=== PATIENT | male | born 1985 | race American Indian/Alaskan Native ===

== ENCOUNTER 2018-04-21 13:49 | Inpatient (IN) | payer OTHER ==
[2018-04-21 15:02] LABS: Hematocrit 33.3 % (35.5-45.6); Hemoglobin 10.2 gm/dl (11.8-15.2); Mean Corpuscular HGB Conc 31 % (32-34); Mean Corpuscular Volume 74 fl (84-94); Platelet Count 162 K/mm3 (140-440); Red Blood Count 4.49 M/mm3 (3.65-5.03)
[2018-04-21 15:16] LABS: Mean Corpuscular Hemoglobin 23 pg (28-32); Red Cell Distribution Width 21.1 % (13.2-15.2)
[2018-04-21 15:22] LABS: Albumin 2.9 g/dL (3.9-5); Calcium 8.9 mg/dL (8.4-10.2)
[2018-04-21] MEDS ORDERED: VANCOMYCIN IV ONE (16:26)
[2018-04-21] MEDS ORDERED: NACL 0.9% 1000 ML IV ONE (16:26)
[2018-04-21] MEDS ORDERED: NACL 0.9% IV ONE (16:26)
--- NOTE | 2018-04-21 16:33 | Emergency Department Report ---
ED Altered Mental Status HPI - General Chief Complaint: Nausea/Vomiting/Diarrhea Stated Complaint: AMS Time Seen by Provider: 04/21/18 16:11 Source: patient, EMS Mode of arrival: Stretcher Limitations: Physical Limitation - History of Present Illness Initial Comments: Mr. Caceres is 33 yo male who presents with altered mental status for the past days. Mother called EMS. He appeared sleepy. recently dc'd from [facility] for hypertensive crisis. Hx of CVA. Patient unable to give hx due to severe illness. I reviewed nursing documentation Our nurse spoke with mother, kept falling today. Has hx of slurred speech due to CVA. Recent evaluation at [facility] for HTN. I was unable to contact mother with number provided. MD Complaint: altered mental status, decreased responsiveness -: Gradual Severity: severe Consistency of Symptoms: getting worse - Related Data Allergies Allergy/AdvReac Type Severity Reaction Status Date / Time No Known Allergies Allergy Unverified 04/21/18 14:14 ED Review of Systems ROS: Stated complaint: AMS Other details as noted in HPI Comment: Unobtainable due to pts medical conditions ED Past Medical Hx - Past Medical History Hx Hypertension: Yes Hx CVA: Yes - Surgical History Additional Surgical History: unable to be obtained - Social History Other Social History: unable to obtain hx ED Physical Exam - General Limitations: Physical Limitation General appearance: lethargic, other (increased work of breathing) - Head Head exam: Present: atraumatic, normocephalic - Eye Eye exam: Present: PERRL - ENT ENT exam: Present: mucous membranes dry - Neck Neck exam: Present: other (neck supple) - Respiratory Respiratory exam: Present: accessory muscle use, decreased breath sounds - Cardiovascular Cardiovascular Exam: Present: regular rate, normal rhythm, normal heart sounds. Absent: systolic murmur, diastolic murmur - GI/Abdominal GI/Abdominal exam: Present: soft. Absent: distended, tenderness, guarding, rebound - Extremities Exam Extremities exam: Present: other (edematous extremities with venous stasis changes) - Neurological Exam Neurological exam: Present: other (lethargic ) - Psychiatric Psychiatric exam: Present: other (lethargic) - Skin Skin exam: Present: other (venous stasis dermatitis) ED Course Vital Signs 04/21/18 04/21/18 04/21/18 15:01 15:02 16:05 Temperature 103.3 F H Pulse Rate 84 84 Respiratory 14 14 15 Rate Blood Pressure 141/89 Blood Pressure 141/89 [Left] O2 Sat by Pulse 96 96 95 Oximetry 04/21/18 04/21/18 04/21/18 17:01 17:22 18:01 Temperature 102.8 F H Pulse Rate 86 88 81 Respiratory 26 H Rate Blood Pressure 155/89 160/81 Blood Pressure 155/89 [Left] O2 Sat by Pulse 98 97 95 Oximetry 04/21/18 04/21/18 04/21/18 19:01 21:19 21:22 Temperature 101.2 F H Pulse Rate 81 78 78 Respiratory 19 19 Rate Blood Pressure 149/77 149/77 Blood Pressure 150/80 [Left] O2 Sat by Pulse 95 97 Oximetry 04/21/18 04/21/18 22:37 23:01 Temperature Pulse Rate 76 Respiratory 21 Rate Blood Pressure 150/80 145/62 Blood Pressure [Left] O2 Sat by Pulse 98 89 Oximetry - Lab Data Result diagrams: 04/21/18 14:50 04/21/18 14:50 Lab Results 04/21/18 04/21/18 04/21/18 Range/Units 14:50 14:50 14:50 WBC 22.3 H (4.5-11.0) K/mm3 RBC 4.49 (3.65-5.03) M/mm3 Hgb 10.2 L (11.8-15.2) gm/dl Hct 33.3 L (35.5-45.6) % MCV 74 L (84-94) fl MCH 23 L (28-32) pg MCHC 31 L (32-34) % RDW 21.1 H (13.2-15.2) % Plt Count 162 (140-440) K/mm3 Add Manual Diff Complete Total Counted 100 Seg Neuts % (Manual) 87.0 H (40.0-70.0) % Band Neutrophils % 0 % Lymphocytes % (Manual) 6.0 L (13.4-35.0) % Reactive Lymphs % (Man) 0 % Monocytes % (Manual) 7.0 (0.0-7.3) % Eosinophils % (Manual) 0 (0.0-4.3) % Basophils % (Manual) 0 (0.0-1.8) % Metamyelocytes % 0 % Myelocytes % 0 % Promyelocytes % 0 % Blast Cells % 0 % Nucleated RBC % Not Reportable Seg Neutrophils # Man 19.4 H (1.8-7.7) K/mm3 Band Neutrophils # 0.0 K/mm3 Lymphocytes # (Manual) 1.3 (1.2-5.4) K/mm3 Abs React Lymphs (Man) 0.0 K/mm3 Monocytes # (Manual) 1.6 H (0.0-0.8) K/mm3 Eosinophils # (Manual) 0.0 (0.0-0.4) K/mm3 Basophils # (Manual) 0.0 (0.0-0.1) K/mm3 Metamyelocytes # 0.0 K/mm3 Myelocytes # 0.0 K/mm3 Promyelocytes # 0.0 K/mm3 Blast Cells # 0.0 K/mm3 WBC Morphology Not Reportable Hypersegmented Neuts Not Reportable Hyposegmented Neuts Not Reportable Hypogranular Neuts Not Reportable Smudge Cells Not Reportable Toxic Granulation Not Reportable Toxic Vacuolation Not Reportable Dohle Bodies Not Reportable Pelger-Huet Anomaly Not Reportable Yoly Rods Not Reportable Platelet Estimate Not Reportable Clumped Platelets Not Reportable Plt Clumps, EDTA Not Reportable Large Platelets Not Reportable Giant Platelets Not Reportable Platelet Satelliting Not Reportable Plt Morphology Comment Not Reportable RBC Morphology Normal Dimorphic RBCs Not Reportable Polychromasia Not Reportable Hypochromasia Not Reportable Poikilocytosis Not Reportable Anisocytosis Not Reportable Microcytosis Not Reportable Macrocytosis Not Reportable Spherocytes Not Reportable Pappenheimer Bodies Not Reportable Sickle Cells Not Reportable Target Cells Not Reportable Tear Drop Cells Not Reportable Ovalocytes Not Reportable Helmet Cells Not Reportable Guevar[place] Bodies Not Reportable [place] Rings Not Reportable [place] Cells Not Reportable Bite Cells Not Reportable Crenated Cell Not Reportable Elliptocytes Not Reportable Acanthocytes (Spur) Not Reportable Rouleaux Not Reportable Hemoglobin C Crystals Not Reportable Schistocytes Not Reportable Malaria parasites Not Reportable José Miguel Bodies Not Reportable Hem Pathologist Commnt No Sodium 136 L (137-145) mmol/L Potassium 3.7 (3.6-5.0) mmol/L Chloride 95.6 L (98-107) mmol/L Carbon Dioxide 26 (22-30) mmol/L Anion Gap 18 mmol/L BUN 49 H (9-20) mg/dL Creatinine 3.8 H (0.8-1.5) mg/dL Estimated GFR 19 ml/min BUN/Creatinine Ratio 13 % Glucose 83 (75-100) mg/dL POC Glucose (70-105) Lactic Acid (0.7-2.0) mmol/L Calcium 8.9 (8.4-10.2) mg/dL Total Bilirubin 1.10 (0.1-1.2) mg/dL AST 50 H (5-40) units/L ALT 12 (7-56) units/L Alkaline Phosphatase 89 (35-129) units/L Ammonia (25-60) umol/L Total Protein 7.6 (6.3-8.2) g/dL Albumin 2.9 L (3.9-5) g/dL Albumin/Globulin Ratio 0.6 % TSH 2.650 (0.270-4.200) mlU/mL Urine Color (Yellow) Urine Turbidity (Clear) Urine pH (5.0-7.0) Ur Specific [place] (1.003-1.030) Urine Protein (Negative) mg/dL Urine Glucose (UA) (Negative) mg/dL Urine Ketones (Negative) mg/dL Urine Blood (Negative) Urine Nitrite (Negative) Urine Bilirubin (Negative) Urine Urobilinogen (<2.0) mg/dL Ur Leukocyte Esterase (Negative) Urine WBC (Auto) (0.0-6.0) /HPF Urine RBC (Auto) (0.0-6.0) /HPF U Epithel Cells (Auto) (0-13.0) /HPF Urine Bacteria (Auto) (Negative) /HPF Urine Yeast (Budding) /HPF Urine Opiates Screen Urine Methadone Screen Ur Barbiturates Screen Ur Phencyclidine Scrn Ur Amphetamines Screen U Benzodiazepines Scrn Urine Cocaine Screen U Marijuana (THC) Screen Drugs of Abuse Note Plasma/Serum Alcohol (0-0.07) % 04/21/18 04/21/18 04/21/18 Range/Units 14:50 16:16 19:01 WBC (4.5-11.0) K/mm3 RBC (3.65-5.03) M/mm3 Hgb (11.8-15.2) gm/dl Hct (35.5-45.6) % MCV (84-94) fl MCH (28-32) pg MCHC (32-34) % RDW (13.2-15.2) % Plt Count (140-440) K/mm3 Add Manual Diff Total Counted Seg Neuts % (Manual) (40.0-70.0) % Band Neutrophils % % Lymphocytes % (Manual) (13.4-35.0) % Reactive Lymphs % (Man) % Monocytes % (Manual) (0.0-7.3) % Eosinophils % (Manual) (0.0-4.3) % Basophils % (Manual) (0.0-1.8) % Metamyelocytes % % Myelocytes % % Promyelocytes % % Blast Cells % % Nucleated RBC % Seg Neutrophils # Man (1.8-7.7) K/mm3 Band Neutrophils # K/mm3 Lymphocytes # (Manual) (1.2-5.4) K/mm3 Abs React Lymphs (Man) K/mm3 Monocytes # (Manual) (0.0-0.8) K/mm3 Eosinophils # (Manual) (0.0-0.4) K/mm3 Basophils # (Manual) (0.0-0.1) K/mm3 Metamyelocytes # K/mm3 Myelocytes # K/mm3 Promyelocytes # K/mm3 Blast Cells # K/mm3 WBC Morphology Hypersegmented Neuts Hyposegmented Neuts Hypogranular Neuts Smudge Cells Toxic Granulation Toxic Vacuolation Dohle Bodies Pelger-Huet Anomaly Yoly Rods Platelet Estimate Clumped Platelets Plt Clumps, EDTA Large Platelets Giant Platelets Platelet Satelliting Plt Morphology Comment RBC Morphology Dimorphic RBCs Polychromasia Hypochromasia Poikilocytosis Anisocytosis Microcytosis Macrocytosis Spherocytes Pappenheimer Bodies Sickle Cells Target Cells Tear Drop Cells Ovalocytes Helmet Cells Guevara-[place] Bodies [place] Rings [place] Cells Bite Cells Crenated Cell Elliptocytes Acanthocytes (Spur) Rouleaux Hemoglobin C Crystals Schistocytes Malaria parasites José Miguel Bodies Hem Pathologist Commnt Sodium (137-145) mmol/L Potassium (3.6-5.0) mmol/L Chloride (98-107) mmol/L Carbon Dioxide (22-30) mmol/L Anion Gap mmol/L BUN (9-20) mg/dL Creatinine (0.8-1.5) mg/dL Estimated GFR ml/min BUN/Creatinine Ratio % Glucose (75-100) mg/dL POC Glucose 132 H (70-105) Lactic Acid (0.7-2.0) mmol/L Calcium (8.4-10.2) mg/dL Total Bilirubin (0.1-1.2) mg/dL AST (5-40) units/L ALT (7-56) units/L Alkaline Phosphatase (35-129) units/L Ammonia 106.0 H (25-60) umol/L Total Protein (6.3-8.2) g/dL Albumin (3.9-5) g/dL Albumin/Globulin Ratio % TSH (0.270-4.200) mlU/mL Urine Color (Yellow) Urine Turbidity (Clear) Urine pH (5.0-7.0) Ur Specific [place] (1.003-1.030) Urine Protein (Negative) mg/dL Urine Glucose (UA) (Negative) mg/dL Urine Ketones (Negative) mg/dL Urine Blood (Negative) Urine Nitrite (Negative) Urine Bilirubin (Negative) Urine Urobilinogen (<2.0) mg/dL Ur Leukocyte Esterase (Negative) Urine WBC (Auto) (0.0-6.0) /HPF Urine RBC (Auto) (0.0-6.0) /HPF U Epithel Cells (Auto) (0-13.0) /HPF Urine Bacteria (Auto) (Negative) /HPF Urine Yeast (Budding) /HPF Urine Opiates Screen Urine Methadone Screen Ur Barbiturates Screen Ur Phencyclidine Scrn Ur Amphetamines Screen U Benzodiazepines Scrn Urine Cocaine Screen U Marijuana (THC) Screen Drugs of Abuse Note Plasma/Serum Alcohol < 0.01 (0-0.07) % 04/21/18 04/21/18 04/21/18 Range/Units 19:30 19:30 19:46 WBC (4.5-11.0) K/mm3 RBC (3.65-5.03) M/mm3 Hgb (11.8-15.2) gm/dl Hct (35.5-45.6) % MCV (84-94) fl MCH (28-32) pg MCHC (32-34) % RDW (13.2-15.2) % Plt Count (140-440) K/mm3 Add Manual Diff Total Counted Seg Neuts % (Manual) (40.0-70.0) % Band Neutrophils % % Lymphocytes % (Manual) (13.4-35.0) % Reactive Lymphs % (Man) % Monocytes % (Manual) (0.0-7.3) % Eosinophils % (Manual) (0.0-4.3) % Basophils % (Manual) (0.0-1.8) % Metamyelocytes % % Myelocytes % % Promyelocytes % % Blast Cells % % Nucleated RBC % Seg Neutrophils # Man (1.8-7.7) K/mm3 Band Neutrophils # K/mm3 Lymphocytes # (Manual) (1.2-5.4) K/mm3 Abs React Lymphs (Man) K/mm3 Monocytes # (Manual) (0.0-0.8) K/mm3 Eosinophils # (Manual) (0.0-0.4) K/mm3 Basophils # (Manual) (0.0-0.1) K/mm3 Metamyelocytes # K/mm3 Myelocytes # K/mm3 Promyelocytes # K/mm3 Blast Cells # K/mm3 WBC Morphology Hypersegmented Neuts Hyposegmented Neuts Hypogranular Neuts Smudge Cells Toxic Granulation Toxic Vacuolation Dohle Bodies Pelger-Huet Anomaly Yoly Rods Platelet Estimate Clumped Platelets Plt Clumps, EDTA Large Platelets Giant Platelets Platelet Satelliting Plt Morphology Comment RBC Morphology Dimorphic RBCs Polychromasia Hypochromasia Poikilocytosis Anisocytosis Microcytosis Macrocytosis Spherocytes Pappenheimer Bodies Sickle Cells Target Cells Tear Drop Cells Ovalocytes Helmet Cells Guevara-[place] Bodies [place] Rings [place] Cells Bite Cells Crenated Cell Elliptocytes Acanthocytes (Spur) Rouleaux Hemoglobin C Crystals Schistocytes Malaria parasites Jos Émiguel Bodies Hem Pathologist Commnt Sodium (137-145) mmol/L Potassium (3.6-5.0) mmol/L Chloride (98-107) mmol/L Carbon Dioxide (22-30) mmol/L Anion Gap mmol/L BUN (9-20) mg/dL Creatinine (0.8-1.5) mg/dL Estimated GFR ml/min BUN/Creatinine Ratio % Glucose (75-100) mg/dL POC Glucose (70-105) Lactic Acid 1.40 (0.7-2.0) mmol/L Calcium (8.4-10.2) mg/dL Total Bilirubin (0.1-1.2) mg/dL AST (5-40) units/L ALT (7-56) units/L Alkaline Phosphatase (35-129) units/L Ammonia (25-60) umol/L Total Protein (6.3-8.2) g/dL Albumin (3.9-5) g/dL Albumin/Globulin Ratio % TSH (0.270-4.200) mlU/mL Urine Color [place] (Yellow) Urine Turbidity Cloudy (Clear) Urine pH 5.0 (5.0-7.0) Ur Specific [place] 1.012 (1.003-1.030) Urine Protein 100 mg/dl (Negative) mg/dL Urine Glucose (UA) Neg (Negative) mg/dL Urine Ketones Neg (Negative) mg/dL Urine Blood Neg (Negative) Urine Nitrite Neg (Negative) Urine Bilirubin Neg (Negative) Urine Urobilinogen < 2.0 (<2.0) mg/dL Ur Leukocyte Esterase Neg (Negative) Urine WBC (Auto) 3.0 (0.0-6.0) /HPF Urine RBC (Auto) 2.0 (0.0-6.0) /HPF U Epithel Cells (Auto) < 1.0 (0-13.0) /HPF Urine Bacteria (Auto) 1+ (Negative) /HPF Urine Yeast (Budding) 2+ /HPF Urine Opiates Screen Presumptive negative Urine Methadone Screen Presumptive negative Ur Barbiturates Screen Presumptive negative Ur Phencyclidine Scrn Presumptive negative Ur Amphetamines Screen Presumptive negative U Benzodiazepines Scrn Presumptive negative Urine Cocaine Screen Presumptive negative U Marijuana (THC) Screen Presumptive positive Drugs of Abuse Note Disclamer Plasma/Serum Alcohol (0-0.07) % 04/21/18 16:32 Time obtained 1422 rate 85 bpm NSr nl axis no intervals nonspecific T wave abnormality no ST elevation - Radiology Data Radiology results: report reviewed CT head without acute process, CT chest with pleural effusion CT abd/pelvis with extensive lymphadenopathy, hematological malignancy is on differential - Medical Decision Making Mr. Caceres presents with fever, sepsis, AMS. Sister arrived at admitted that patient smoked marijuana prior to arrival. After resuscitation, patient became alert and conversant. Consequently, I do not suspect meningitis. I suspect delirium due to sepsis and drug abuse. According to outside records from [facility] Mr. Garcia has hx of HF, SAH 11/2016, type 2 diabetes. He was evaluated for chest pain acute congestive heart failure exacerbation and hypertensive urgency. Had extensive evaluation by neurology, neurosurgery and ophthalmology for chronic headache Medications include furosemide, metformin, amlodipine, atorvastatin, carvedilol , hydralazine, vitamin D White count 5.2 on 04/08/2018 According to echocardiogram patient has severe concentric left ventricle hypertrophy with EF 50% Today patient has fever elevated white count, apparently delirious now alert and conversant. Patient is at risk for nosocomial infection but no obvious focus of infection. CT A/P with extensive lymphadenopathy with concern for hematologic malignancy or metastatic disease. Unclear significant. Admitted in fair condition. I highly appreciate the care provided by my hospitalist colleague Dr. Benavides. Patient is a complex case requiring her expertise. Critical Care Time: Yes Critical care time in (mins) excluding proc time.: 50 Critical care attestation.: If time is entered above; I have spent that time in minutes in the direct care of this critically ill patient, excluding procedure time. 50 minutes of critical care time excluding procedures were used in the care of the patient. ED Disposition Clinical Impression: Sepsis, Delirium, Lymphadenopathy Disposition: OP ADMIT IP TO THIS HOSP Is pt being admited?: Yes Does the pt Need Aspirin: No Condition: Stable
--- NOTE | 2018-04-21 16:44 | Cat Scan Report ---
FINAL REPORT EXAM: CT HEAD/BRAIN WO CON HISTORY: ams COMPARISON: None. TECHNIQUE: Multiple contiguous axial images were obtained from the skullbase to the vertex without administration of IV contrast. FINDINGS: There is normal brain volume for the patient's age. There is normal butler-white differentiation. There is no parenchymal hemorrhage or extra-axial fluid collection. There is no mass or mass effect. The ventricles are midline and are not enlarged. The subarachnoid spaces and basilar cisterns are clear. There is no skull fracture. The mastoid air cells are clear. There is mild mucosal disease of the maxillary sinuses. IMPRESSION: No acute intracranial abnormality.
[2018-04-21 16:45] LABS: Basophils % (Manual) 0 % (0.0-1.8); Eosinophils % (Manual) 0 % (0.0-4.3); RBC Morphology Normal; Total Cells Counted 100
[2018-04-21] MEDS ORDERED: VANCOMYCIN 2,000 MG in NACL 0.9% 500 ML 500 ML IV ONE (16:45)
[2018-04-21] MEDS ORDERED: MAXIPIME/NS 2 GM/100 ML 2 GM/100 ML BAG IV SCH ×2 (17:00→22:00)
--- NOTE | 2018-04-21 17:30 | XRay Report ---
FINAL REPORT EXAM: XR CHEST 1V AP HISTORY: sepsis TECHNIQUE: AP portable view of the chest PRIORS: None. FINDINGS: Lines, tubes, and devices: N/A Lungs and pleura: Trachea is normal in position. Lungs are clear of infiltrate, pleural effusion, vascular congestion, or pneumothorax. Left lung base is not entirely included on this film. Cardiomediastinal silhouette: The heart is markedly enlarged Other: Bony structures are intact. IMPRESSION: No acute cardiopulmonary process seen. Marked cardiomegaly
[2018-04-21] MEDS ORDERED: TYLENOL PR ONE (17:49)
[2018-04-21] MEDS ORDERED: D50W (25GM) Syringe IV ONE (17:58)
[2018-04-21] MEDS ORDERED: TYLENOL ONE (18:48)
[2018-04-21] MEDS ORDERED: TYLENOL PO ONE (18:58)
[2018-04-21 19:52] LABS: Bacteria,Urine 1+ /HPF (Negative); Bilirubin,Urine NEG (Negative); Blood,Urine NEG (Negative); Color,Urine Amber (Yellow); Urobilinogen,Urine < 2.0 mg/dL (<2.0)
[2018-04-21 19:59] LABS: Amphetamine Screen,Urine PRESUMPTIVE NEGATIVE; Benzodiazepines Screen,Urine PRESUMPTIVE NEGATIVE; Cocaine Screen,Urine PRESUMPTIVE NEGATIVE; Methadone Screen,Urine PRESUMPTIVE NEGATIVE; Opiate Screen,Urine PRESUMPTIVE NEGATIVE
[2018-04-21 20:09] LABS: Cannabinoid Screen,Urine PRESUMPTIVE POSITIVE
--- NOTE | 2018-04-21 23:10 | Cat Scan Report ---
FINAL REPORT PROCEDURE: CT ABDOMEN PELVIS WO CON TECHNIQUE: Computerized axial tomography of the abdomen and pelvis was performed without intravenous contrast. This study is performed without intravascular contrast material and its sensitivity for abdominal and pelvic pathology, including neoplasms, inflammation, abscess, free fluid, thrombosis, arterial dissection and infarction, is reduced compared with a contrast enhanced study. HISTORY: fever sepsis COMPARISON: No prior studies are available for comparison. FINDINGS: Limited study due to streak artifacts. There is mild to moderate cardiomegaly. Liver, spleen, and bilateral adrenal glands are within normal limits. Bilateral kidneys demonstrate normal density without calculi or hydronephrosis. Urinary bladder is minimally filled with normal outlines. Aorta is of normal caliber. Minimal degree of free fluid is noted in the pelvic cavity. There is no free air. Gallbladder is contracted. Small bowel loops are within normal limits. Appendix is not distinctly visualized. There are no inflammatory changes in the right lower quadrant. Multiple enlarged lymph nodes are noted involving bilateral superficial inguinal, bilateral iliac and periaortic and pericaval regions largest measuring 2.4 centimeters in short axis located in the right iliac region. Vertebral height is normal. IMPRESSION: Bilateral inguinal, iliac, periaortic and pericaval lymphadenopathy suspicious for etiologies such as lymphoma or metastatic disease. [id number] cardiomegaly.
--- NOTE | 2018-04-21 23:13 | Cat Scan Report ---
FINAL REPORT PROCEDURE: CT CHEST WO CON TECHNIQUE: Computerized axial tomography of the chest was performed without contrast material. This study is performed without intravenous contrast and the sensitivity for pathology, including neoplasms, adenopathy, abscess, pulmonary embolism and aortic dissection, is reduced. HISTORY: fever sepsis COMPARISON: No prior studies are available for comparison. TECHNICAL QUALITY: Satisfactory. FINDINGS: Mild to moderate cardiomegaly is noted. Bilateral lungs are clear. Hilar structures are within normal limits as visualized on this noncontrast study. Aorta is of normal caliber. Minimal pericardial effusion is identified. Visualized thyroid demonstrates normal size and density. There is no lymphadenopathy. There is minimal degree left pleural effusion. Vertebral height is normal. IMPRESSION: No acute pulmonary process [id number] cardiomegaly Minimal pericardial effusion Minimal left pleural effusion.
[2018-04-21] MEDS ORDERED: SODIUM CHLORIDE FLUSH SYRINGE 10 ML IV PRN (23:28)
[2018-04-21] MEDS ORDERED: ZOFRAN IV PRN (23:28)
--- NOTE | 2018-04-21 23:32 | History and Physical Report ---
History of Present Illness Date of examination: 04/21/18 History of present illness: 33-year-old man with a history of CHF, hypertension, diabetes, chronic kidney disease, baseline creatinine 2.8 subarachnoid hemorrhage (2016), sorin was brought to the emergency room because he was lethargic. Patient stated he is having diarrhea over the last 5 days, only when he eats. He had decreased oral intake over the last 1 week, feels weak. Recent admission to [facility] in March for hypertensive urgency chest pain, CHF exacerbation Review of systems Constitutional: no weight loss, chills, fever Ears, eyes, nose, mouth and throat: no nasal congestion, no nasal discharge, no sinus pressure, no vision change, no red eye. Neck: No neck pain or rigidity. Cardiovascular: no chest pain, palpitations Respiratory: no cough, shortness of breath Gastrointestinal: no abdominal pain hematochezia Genitourinary : no frequency , no hematuria Musculoskeletal: no joint swelling or muscle ache Integumentary: no rash, no pruritis Neurological: no parathesias, no numbness, no focal weakness Endocrine: no cold or heat intolerance, no polyuria or polydipsia Hematologic/Lymphatic: no easy bruising, no easy bleeding, no gland swelling Allergic/Immunologic: no urticaria, no angioedema. PAST MEDICAL HISTORY: CHF, hypertension, diabetes, chronic kidney disease, baseline creatinine 2.8 subarachnoid hemorrhage/ CVA, SORIN PAST SURGICAL HISTORY: NONE SOCIAL HISTORY: No alcohol, no drugs, tobacco FAMILY HISTORY: Hypertension Medications and Allergies Allergies Allergy/AdvReac Type Severity Reaction Status Date / Time No Known Allergies Allergy Unverified 04/21/18 14:14 Home Medications Medication Instructions Recorded Confirmed Last Taken Type Amlodipine Besylate [Norvasc] 10 mg PO DAILY 04/22/18 04/22/18 04/21/18 History Atorvastatin [Lipitor] 80 mg PO DAILY 04/22/18 04/22/18 04/21/18 History Carvedilol [Coreg] 50 mg PO Q12H 04/22/18 04/22/18 04/21/18 History Ergocalciferol (Vitamin D2) 50,000 unit PO Q7D 04/22/18 04/22/18 Unknown History [Drisdol] Torsemide [Demadex] 40 mg PO BID 04/22/18 04/22/18 04/21/18 History hydrALAZINE [Apresoline TAB] 100 mg PO Q8H 04/22/18 04/22/18 04/21/18 History metroNIDAZOLE [Flagyl TAB] 500 mg PO Q8HR #15 tablet 04/25/18 Unknown Rx Active Meds: Active Medications Metronidazole (Flagyl 500 Mg/100 Ml) 500 mg in 100 mls @ 100 mls/hr IV Q8HR [facility] ; Protocol Exam - Physical Exam Narrative exam: Gen. appearance: Patient lying in bed, no apparent distress HEENT: Normocephalic, atraumatic, pupils equally round and reactive to light, extraocular movement intact, and no sclericterus,. No JVD or thyromegaly or nodule,neck supple, no carotid bruit ,mucous membranes moist, no exudate or erythema Heart: S1, S2, regular rate and rhythm Lungs: Clear bilaterally, breathing comfortable Abdomen: Positive bowel sounds, non-tender, nondistended, no organomegaly Extremity:no edema cyanosis, clubbing Skin: no rash, dry, warm Neuro: Oriented 3, cranial nerves II-12 intact, speech is fluent, motor and sensory intact - Constitutional Vitals: Temp Pulse Resp BP Pulse Ox 101.2 F H 76 21 145/62 89 04/21/18 21:22 04/21/18 23:01 04/21/18 23:01 04/21/18 23:01 04/21/18 23:01 Results - Labs CBC & Chem 7: 04/24/18 10:09 04/25/18 08:52 Labs: Abnormal lab results 04/21/18 04/21/18 04/21/18 Range/Units 14:50 14:50 16:16 WBC 22.3 H (4.5-11.0) K/mm3 Hgb 10.2 L (11.8-15.2) gm/dl Hct 33.3 L (35.5-45.6) % MCV 74 L (84-94) fl MCH 23 L (28-32) pg MCHC 31 L (32-34) % RDW 21.1 H (13.2-15.2) % Seg Neuts % (Manual) 87.0 H (40.0-70.0) % Lymphocytes % (Manual) 6.0 L (13.4-35.0) % Seg Neutrophils # Man 19.4 H (1.8-7.7) K/mm3 Monocytes # (Manual) 1.6 H (0.0-0.8) K/mm3 Sodium 136 L (137-145) mmol/L Chloride 95.6 L (98-107) mmol/L BUN 49 H (9-20) mg/dL Creatinine 3.8 H (0.8-1.5) mg/dL POC Glucose (70-105) AST 50 H (5-40) units/L Ammonia 106.0 H (25-60) umol/L Albumin 2.9 L (3.9-5) g/dL 04/21/18 Range/Units 19:01 WBC (4.5-11.0) K/mm3 Hgb (11.8-15.2) gm/dl Hct (35.5-45.6) % MCV (84-94) fl MCH (28-32) pg MCHC (32-34) % RDW (13.2-15.2) % Seg Neuts % (Manual) (40.0-70.0) % Lymphocytes % (Manual) (13.4-35.0) % Seg Neutrophils # Man (1.8-7.7) K/mm3 Monocytes # (Manual) (0.0-0.8) K/mm3 Sodium (137-145) mmol/L Chloride (98-107) mmol/L BUN (9-20) mg/dL Creatinine (0.8-1.5) mg/dL POC Glucose 132 H (70-105) AST (5-40) units/L Ammonia (25-60) umol/L Albumin (3.9-5) g/dL - Imaging and Cardiology Chest x-ray: report reviewed CT scan - abdomen: report reviewed CT scan - chest: report reviewed CT Scan - head: report reviewed CT scan - pelvis: report reviewed Assessment and Plan Assessment SIRS Elevated ammonia level Lymphadenopathy on CT Acute on chronic renal failure Diarrhea Hypertension CHF, stable Diabetes Plan Admit to medicine Start IV Rocephin, Flagyl, follow cultures Stool cultures, consult oncology Start lactulose, monitor ammonia level Gentle IV fluids, monitor kidney function DVT prophylaxis
[2018-04-22] MEDS ORDERED: TYLENOL ONE (00:27)
[2018-04-22] MEDS: TYLENOL PO PRN ×3 (00:33→23:07)
[2018-04-22] MEDS: FLAGYL 500 MG/100 ML 500 MG/100 ML BAG IV SCH ×4 (00:55→23:04)
[2018-04-22 04:26] LABS: Basophils # (Auto) 0.1 K/mm3 (0.0-0.1); Basophils % (Auto) 0.5 % (0.0-1.8); Eosinophils # (Auto) 0.1 K/mm3 (0.0-0.4); Eosinophils % (Auto) 0.5 % (0.0-4.3); Hemoglobin 9.6 gm/dl (11.8-15.2); Lymphocytes # (Auto) 0.4 K/mm3 (1.2-5.4); Lymphocytes % (Auto) 2.6 % (13.4-35.0); Mean Corpuscular HGB Conc 31 % (32-34); Mean Corpuscular Volume 74 fl (84-94); Monocytes # (Auto) 1.5 K/mm3 (0.0-0.8); Monocytes % (Auto) 9.2 % (0.0-7.3); Platelet Count 151 K/mm3 (140-440); Red Blood Count 4.18 M/mm3 (3.65-5.03)
[2018-04-22 04:27] LABS: Mean Corpuscular Hemoglobin 23 pg (28-32); Red Cell Distribution Width 21.2 % (13.2-15.2)
[2018-04-22 05:27] LABS: Calcium 8.5 mg/dL (8.4-10.2)
[2018-04-22] MEDS ORDERED: FLAGYL 500 MG/100 ML 500 MG/100 ML BAG IV ONE (06:09)
[2018-04-22] MEDS ORDERED: D5/0.45NS 1,000 ML IV ONE (06:52)
[2018-04-22] MEDS ORDERED: NACL 0.45% 500 ML IV ONE (07:00)
[2018-04-22] MEDS ORDERED: NACL 0.45% IV SCH (07:00)
[2018-04-22] MEDS ORDERED: NACL 0.45% 1000 ML 500 ML IV SCH (07:00)
[2018-04-22] MEDS: CEPHULAC PO SCH ×3 (14:54→19:30)
[2018-04-22] MEDS: SODIUM CHLORIDE FLUSH SYRINGE 10 ML IV SCH ×2 (15:11→23:07)
--- NOTE | 2018-04-22 23:32 | Event Note ---
Date: 04/22/18 Inguinal, iliac, antonio aortic LN microcytic anemia Neutrophila - leukocytosis pt says he had bladder infection and this is the reason for LN I explained that inguinal LN cannot be explained by the Bladder infection d/w pt and family reg need for LN biopsy - pt wants to wait. [id number]
[2018-04-23] MEDS: CEPHULAC PO SCH ×5 (00:20→23:12)
[2018-04-23] MEDS: FLAGYL 500 MG/100 ML 500 MG/100 ML BAG IV SCH ×3 (06:04→22:59)
--- NOTE | 2018-04-23 08:03 | Consultation ---
REFERRING PHYSICIAN: Dr. Tamy Benavides REASON FOR CONSULTATION: Abnormal lymphadenopathy. HISTORY OF PRESENT ILLNESS: I saw the patient, a 33-year-old male in the medical floor. The patient has past history of CHF, hypertension, diabetes, chronic kidney disease, subarachnoid hemorrhage in 2017, obstructive sleep apnea, was brought to the ER because of lethargy. As per the notes, he has been having diarrhea. Recent admission to [facility] in 03/2018 for hypertensive urgency and chest pain. The patient says that he had ankle pain issues at [facility]. During this admission, CT abdomen showed external inguinal, iliac and paraaortic lymphadenopathy with lymphoma being a differential. I have been asked to evaluate the patient. At this time, no fever, no chills. No vision issues. No nasal discharge. No chest pain, no palpitations. No cough, no shortness of breath. No abdominal pain. No hematuria. No rash. No focal weakness. No easy bleeding. The patient is complaining of ankle area pain. At this time, he was admitted for lethargy and diarrhea, decreased oral intake and weakness. PAST MEDICAL HISTORY: As above. PAST SURGICAL HISTORY: None. SOCIAL HISTORY: Denies tobacco or alcohol usage and denies drug usage. FAMILY HISTORY: Hypertension. ALLERGIES: None. ACTIVE MEDICATIONS: Include Tylenol, lactulose, Flagyl. PHYSICAL EXAMINATION: VITAL SIGNS: Temperature 99, pulse 77, respirations 22, BP 145/85, young male. HEENT: Mild pallor, no icterus. NECK: No neck lymph nodes. HEART: S1, S2. LUNGS: Clear to auscultation. ABDOMEN: Soft, obese. LYMPHATIC: Not able to appreciate neck or axillary lymph nodes. Groin area is difficult to examine, but not able to appreciate lymphadenopathy. EXTREMITIES: Pedal edema present. NEUROLOGIC: Alert, awake, oriented. LABORATORY DATA: White cell 16, hemoglobin 9.6, MCV 74, platelet 151, neutrophil 14, potassium 3.5, creatinine 3.8. RADIOLOGY: CT abdomen and pelvis reported as bilateral inguinal, iliac, periaortic and pericaval lymphadenopathy suspicious for etiology such as lymphoma or metastatic disease, mild to moderate cardiomegaly. CT chest was done. No acute pulmonary process, cardiomegaly. CT head, nil acute. ASSESSMENT: 1. Groin, pelvic and periaortic lymphadenopathy with lymphoma versus mets differential. I discussed in detail with the patient. He thinks this is infection related. I explained to him that inguinal lymphadenopathy would not be secondary to urinary/bladder infection, which he thinks he has. I discussed with the patient regarding the need for further investigation. He is not keen for same. The patient's family member was present. I discussed with her regarding same. 2. Microcytic anemia. Will investigate. 3. Leukocytosis, likely reactive. Predominant neutrophils. 4. Renal impairment. 5. History of subarachnoid hemorrhage. 6. History of obstructive sleep apnea. 7. History of diabetes. 8. Essential hypertension. 9. History of congestive heart failure. I will revisit the need for further investigation for lymphadenopathy. If the patient continues to be reluctant we will follow the patient as outpatient. I will investigate for microcytic anemia. JOB# [id number] NM/NTS
--- NOTE | 2018-04-23 10:43 | Progress Note ---
Assessment and Plan Assessment and plan: --Metabolic encephalopathy;Supportive care, neuro checks --History of subarachnoid hemorrhage in 2017; CT head negative for acute abnormality --Lymphadenopathy; possible lymphoma, hematology evaluation noted and appreciated, recommend LN biopsy Patient wants to wait, may schedule for biopsy as outpatient --Acute on chronic kidney disease; gentle hydration, closely monitor renal function Avoid nephrotoxins, nephrology evaluation --Hyperammonemia/Encephalopathy; A marked ammonia level, continue lactulose --Hypertension; moderate control, continue current antihypertensives and when necessary medications --Severe malnutrition/hypoalbuminemia, supportive care, nutrition supplements, nutrition consult --DVT prophylaxis; SCD, no pharmacologic anticoagulation in view of history of subarachnoid hemorrhage Planning to case management History Interval history: Patient seen and examined medical records reviewed No new events reported by the nursing staff Patient is minimally communicative No family at the bedside Vital signs reviewed Hospitalist Physical - Constitutional Vitals: Temp Pulse Resp BP Pulse Ox 98.0 F 77 18 143/88 93 04/23/18 05:01 04/23/18 05:01 04/23/18 05:01 04/23/18 05:01 04/23/18 05:01 General appearance: Present: no acute distress, well-nourished, obese (morbidly obese) - EENT Eyes: Present: PERRL, EOM intact - Neck Neck: Present: supple, normal ROM - Respiratory Respiratory effort: normal Respiratory: bilateral: diminished, negative: rales, rhonchi, wheezing - Cardiovascular Rhythm: regular Heart Sounds: Present: S1 & S2 - Extremities Extremities: no ischemia, No edema - Abdominal General gastrointestinal: soft, non-tender, non-distended - Integumentary Integumentary: Present: clear, warm - Psychiatric Psychiatric: appropriate mood/affect, cooperative - Neurologic Neurologic: CNII-XII intact, other (residual weakness) Results - Labs CBC & Chem 7: 04/23/18 12:01 04/22/18 04:03 Labs: Laboratory Last Values WBC 16.5 K/mm3 (4.5-11.0) H 04/22/18 04:03 RBC 4.18 M/mm3 (3.65-5.03) 04/22/18 04:03 Hgb 9.6 gm/dl (11.8-15.2) L 04/22/18 04:03 Hct 31.0 % (35.5-45.6) L 04/22/18 04:03 MCV 74 fl (84-94) L 04/22/18 04:03 MCH 23 pg (28-32) L 04/22/18 04:03 MCHC 31 % (32-34) L 04/22/18 04:03 RDW 21.2 % (13.2-15.2) H 04/22/18 04:03 Plt Count 151 K/mm3 (140-440) 04/22/18 04:03 Lymph % (Auto) 2.6 % (13.4-35.0) L 04/22/18 04:03 Johnston % (Auto) 9.2 % (0.0-7.3) H 04/22/18 04:03 Eos % (Auto) 0.5 % (0.0-4.3) 04/22/18 04:03 Baso % (Auto) 0.5 % (0.0-1.8) 04/22/18 04:03 Lymph # 0.4 K/mm3 (1.2-5.4) L 04/22/18 04:03 Johnston # 1.5 K/mm3 (0.0-0.8) H 04/22/18 04:03 Eos # 0.1 K/mm3 (0.0-0.4) 04/22/18 04:03 Baso # 0.1 K/mm3 (0.0-0.1) 04/22/18 04:03 Add Manual Diff Complete 04/21/18 14:50 Total Counted 100 04/21/18 14:50 Seg Neutrophils % 87.2 % (40.0-70.0) H 04/22/18 04:03 Seg Neuts % (Manual) 87.0 % (40.0-70.0) H 04/21/18 14:50 Band Neutrophils % 0 % 04/21/18 14:50 Lymphocytes % (Manual) 6.0 % (13.4-35.0) L 04/21/18 14:50 Reactive Lymphs % (Man) 0 % 04/21/18 14:50 Monocytes % (Manual) 7.0 % (0.0-7.3) 04/21/18 14:50 Eosinophils % (Manual) 0 % (0.0-4.3) 04/21/18 14:50 Basophils % (Manual) 0 % (0.0-1.8) 04/21/18 14:50 Metamyelocytes % 0 % 04/21/18 14:50 Myelocytes % 0 % 04/21/18 14:50 Promyelocytes % 0 % 04/21/18 14:50 Blast Cells % 0 % 04/21/18 14:50 Nucleated RBC % Not Reportable 04/21/18 14:50 Seg Neutrophils # 14.4 K/mm3 (1.8-7.7) H 04/22/18 04:03 Seg Neutrophils # Man 19.4 K/mm3 (1.8-7.7) H 04/21/18 14:50 Band Neutrophils # 0.0 K/mm3 04/21/18 14:50 Lymphocytes # (Manual) 1.3 K/mm3 (1.2-5.4) 04/21/18 14:50 Abs React Lymphs (Man) 0.0 K/mm3 04/21/18 14:50 Monocytes # (Manual) 1.6 K/mm3 (0.0-0.8) H 04/21/18 14:50 Eosinophils # (Manual) 0.0 K/mm3 (0.0-0.4) 04/21/18 14:50 Basophils # (Manual) 0.0 K/mm3 (0.0-0.1) 04/21/18 14:50 Metamyelocytes # 0.0 K/mm3 04/21/18 14:50 Myelocytes # 0.0 K/mm3 04/21/18 14:50 Promyelocytes # 0.0 K/mm3 04/21/18 14:50 Blast Cells # 0.0 K/mm3 04/21/18 14:50 WBC Morphology Not Reportable 04/21/18 14:50 Hypersegmented Neuts Not Reportable 04/21/18 14:50 Hyposegmented Neuts Not Reportable 04/21/18 14:50 Hypogranular Neuts Not Reportable 04/21/18 14:50 Smudge Cells Not Reportable 04/21/18 14:50 Toxic Granulation Not Reportable 04/21/18 14:50 Toxic Vacuolation Not Reportable 04/21/18 14:50 Dohle Bodies Not Reportable 04/21/18 14:50 Pelger-Huet Anomaly Not Reportable 04/21/18 14:50 Yoly Rods Not Reportable 04/21/18 14:50 Platelet Estimate Not Reportable 04/21/18 14:50 Clumped Platelets Not Reportable 04/21/18 14:50 Plt Clumps, EDTA Not Reportable 04/21/18 14:50 Large Platelets Not Reportable 04/21/18 14:50 Giant Platelets Not Reportable 04/21/18 14:50 Platelet Satelliting Not Reportable 04/21/18 14:50 Plt Morphology Comment Not Reportable 04/21/18 14:50 RBC Morphology Normal 04/21/18 14:50 Dimorphic RBCs Not Reportable 04/21/18 14:50 Polychromasia Not Reportable 04/21/18 14:50 Hypochromasia Not Reportable 04/21/18 14:50 Poikilocytosis Not Reportable 04/21/18 14:50 Anisocytosis Not Reportable 04/21/18 14:50 Microcytosis Not Reportable 04/21/18 14:50 Macrocytosis Not Reportable 04/21/18 14:50 Spherocytes Not Reportable 04/21/18 14:50 Pappenheimer Bodies Not Reportable 04/21/18 14:50 Sickle Cells Not Reportable 04/21/18 14:50 Target Cells Not Reportable 04/21/18 14:50 Tear Drop Cells Not Reportable 04/21/18 14:50 Ovalocytes Not Reportable 04/21/18 14:50 Helmet Cells Not Reportable 04/21/18 14:50 Guevara-Vadito Bodies Not Reportable 04/21/18 14:50 [place] Rings Not Reportable 04/21/18 14:50 Danielle Cells Not Reportable 04/21/18 14:50 Bite Cells Not Reportable 04/21/18 14:50 Crenated Cell Not Reportable 04/21/18 14:50 Elliptocytes Not Reportable 04/21/18 14:50 Acanthocytes (Spur) Not Reportable 04/21/18 14:50 Rouleaux Not Reportable 04/21/18 14:50 Hemoglobin C Crystals Not Reportable 04/21/18 14:50 Schistocytes Not Reportable 04/21/18 14:50 Malaria parasites Not Reportable 04/21/18 14:50 José Miguel Bodies Not Reportable 04/21/18 14:50 Hem Pathologist Commnt No 04/21/18 14:50 Sodium 138 mmol/L (137-145) 04/22/18 04:03 Potassium 3.5 mmol/L (3.6-5.0) L 04/22/18 04:03 Chloride 98.1 mmol/L (98-107) 04/22/18 04:03 Carbon Dioxide 26 mmol/L (22-30) 04/22/18 04:03 Anion Gap 17 mmol/L 04/22/18 04:03 BUN 54 mg/dL (9-20) H 04/22/18 04:03 Creatinine 3.8 mg/dL (0.8-1.5) H 04/22/18 04:03 Estimated GFR 22 ml/min 04/22/18 04:03 BUN/Creatinine Ratio 14 % 04/22/18 04:03 Glucose 75 mg/dL (75-100) 04/22/18 04:03 POC Glucose 89 (70-105) 04/23/18 07:56 Lactic Acid 1.40 mmol/L (0.7-2.0) 04/21/18 19:46 Calcium 8.5 mg/dL (8.4-10.2) 04/22/18 04:03 Total Bilirubin 1.10 mg/dL (0.1-1.2) 04/21/18 14:50 AST 50 units/L (5-40) H 04/21/18 14:50 ALT 12 units/L (7-56) 04/21/18 14:50 Alkaline Phosphatase 89 units/L (35-129) 04/21/18 14:50 Ammonia 106.0 umol/L (25-60) H 04/21/18 16:16 Total Protein 7.6 g/dL (6.3-8.2) 04/21/18 14:50 Albumin 2.9 g/dL (3.9-5) L 04/21/18 14:50 Albumin/Globulin Ratio 0.6 % 04/21/18 14:50 TSH 2.650 mlU/mL (0.270-4.200) 04/21/18 14:50 Urine Color Dayanara (Yellow) 04/21/18 19:30 Urine Turbidity Cloudy (Clear) 04/21/18 19:30 Urine pH 5.0 (5.0-7.0) 04/21/18 19:30 Ur Specific Varnell 1.012 (1.003-1.030) 04/21/18 19:30 Urine Protein 100 mg/dl mg/dL (Negative) 04/21/18 19:30 Urine Glucose (UA) Neg mg/dL (Negative) 04/21/18 19:30 Urine Ketones Neg mg/dL (Negative) 04/21/18 19:30 Urine Blood Neg (Negative) 04/21/18 19:30 Urine Nitrite Neg (Negative) 04/21/18 19:30 Urine Bilirubin Neg (Negative) 04/21/18 19:30 Urine Urobilinogen < 2.0 mg/dL (<2.0) 04/21/18 19:30 Ur Leukocyte Esterase Neg (Negative) 04/21/18 19:30 Urine WBC (Auto) 3.0 /HPF (0.0-6.0) 04/21/18 19:30 Urine RBC (Auto) 2.0 /HPF (0.0-6.0) 04/21/18 19:30 U Epithel Cells (Auto) < 1.0 /HPF (0-13.0) 04/21/18 19:30 Urine Bacteria (Auto) 1+ /HPF (Negative) 04/21/18 19:30 Urine Yeast (Budding) 2+ /HPF 04/21/18 19:30 Urine Opiates Screen Presumptive negative 04/21/18 19:30 Urine Methadone Screen Presumptive negative 04/21/18 19:30 Ur Barbiturates Screen Presumptive negative 04/21/18 19:30 Ur Phencyclidine Scrn Presumptive negative 04/21/18 19:30 Ur Amphetamines Screen Presumptive negative 04/21/18 19:30 U Benzodiazepines Scrn Presumptive negative 04/21/18 19:30 Urine Cocaine Screen Presumptive negative 04/21/18 19:30 U Marijuana (THC) Screen Presumptive positive 04/21/18 19:30 Drugs of Abuse Note Disclamer 04/21/18 19:30 Plasma/Serum Alcohol < 0.01 % (0-0.07) 04/21/18 14:50 C. difficile Toxin A&B Negative (Negative) 04/22/18 06:22
--- NOTE | 2018-04-23 10:44 | Progress Note ---
Assessment and Plan Assessment and plan: --Metabolic encephalopathy;Supportive care, neuro checks --History of subarachnoid hemorrhage in 2017; CT head negative for acute abnormality --Lymphadenopathy; possible lymphoma, hematology evaluation noted and appreciated, recommend LN biopsy Patient wants to wait, may schedule for biopsy as outpatient --Acute on chronic kidney disease; gentle hydration, closely monitor renal function Avoid nephrotoxins, nephrology evaluation --Hyperammonemia/Encephalopathy; A marked ammonia level, continue lactulose --Hypertension; moderate control, continue current antihypertensives and when necessary medications --Severe malnutrition/hypoalbuminemia, supportive care, nutrition supplements, nutrition consult --DVT prophylaxis; SCD, no pharmacologic anticoagulation in view of history of subarachnoid hemorrhage Continue current management Consider x-ray right ankle as needed Plan of care reviewed with the patient and the family member at the bedside History Interval history: Since seen and examined medical records reviewed Patient feels slightly better no new complaints History of fall a few weeks ago, complains of right ankle pain Alert awake Oriented 3 Vital signs reviewed Hospitalist Physical - Constitutional Vitals: Temp Pulse Resp BP Pulse Ox 98.0 F 77 18 143/88 93 04/23/18 05:01 04/23/18 05:01 04/23/18 05:01 04/23/18 05:01 04/23/18 05:01 General appearance: Present: no acute distress, obese (morbidly obese) - EENT Eyes: Present: PERRL, EOM intact - Neck Neck: Present: supple, normal ROM - Respiratory Respiratory effort: normal Respiratory: bilateral: diminished, negative: rales, rhonchi, wheezing - Cardiovascular Rhythm: regular Heart Sounds: Present: S1 & S2 - Extremities Extremities: no ischemia, abnormal (swelling restricted movements right ankle) - Abdominal General gastrointestinal: soft, non-tender, non-distended, normal bowel sounds - Integumentary Integumentary: Present: clear, warm - Psychiatric Psychiatric: appropriate mood/affect, cooperative - Neurologic Neurologic: CNII-XII intact, moves all extremities Results - Labs CBC & Chem 7: 04/24/18 10:09 04/25/18 08:52 Labs: Laboratory Last Values WBC 16.5 K/mm3 (4.5-11.0) H 04/22/18 04:03 RBC 4.18 M/mm3 (3.65-5.03) 04/22/18 04:03 Hgb 9.6 gm/dl (11.8-15.2) L 04/22/18 04:03 Hct 31.0 % (35.5-45.6) L 04/22/18 04:03 MCV 74 fl (84-94) L 04/22/18 04:03 MCH 23 pg (28-32) L 04/22/18 04:03 MCHC 31 % (32-34) L 04/22/18 04:03 RDW 21.2 % (13.2-15.2) H 04/22/18 04:03 Plt Count 151 K/mm3 (140-440) 04/22/18 04:03 Lymph % (Auto) 2.6 % (13.4-35.0) L 04/22/18 04:03 [place] % (Auto) 9.2 % (0.0-7.3) H 04/22/18 04:03 Eos % (Auto) 0.5 % (0.0-4.3) 04/22/18 04:03 Baso % (Auto) 0.5 % (0.0-1.8) 04/22/18 04:03 Lymph # 0.4 K/mm3 (1.2-5.4) L 04/22/18 04:03 [place] # 1.5 K/mm3 (0.0-0.8) H 04/22/18 04:03 Eos # 0.1 K/mm3 (0.0-0.4) 04/22/18 04:03 Baso # 0.1 K/mm3 (0.0-0.1) 04/22/18 04:03 Add Manual Diff Complete 04/21/18 14:50 Total Counted 100 04/21/18 14:50 Seg Neutrophils % 87.2 % (40.0-70.0) H 04/22/18 04:03 Seg Neuts % (Manual) 87.0 % (40.0-70.0) H 04/21/18 14:50 Band Neutrophils % 0 % 04/21/18 14:50 Lymphocytes % (Manual) 6.0 % (13.4-35.0) L 04/21/18 14:50 Reactive Lymphs % (Man) 0 % 04/21/18 14:50 Monocytes % (Manual) 7.0 % (0.0-7.3) 04/21/18 14:50 Eosinophils % (Manual) 0 % (0.0-4.3) 04/21/18 14:50 Basophils % (Manual) 0 % (0.0-1.8) 04/21/18 14:50 Metamyelocytes % 0 % 04/21/18 14:50 Myelocytes % 0 % 04/21/18 14:50 Promyelocytes % 0 % 04/21/18 14:50 Blast Cells % 0 % 04/21/18 14:50 Nucleated RBC % Not Reportable 04/21/18 14:50 Seg Neutrophils # 14.4 K/mm3 (1.8-7.7) H 04/22/18 04:03 Seg Neutrophils # Man 19.4 K/mm3 (1.8-7.7) H 04/21/18 14:50 Band Neutrophils # 0.0 K/mm3 04/21/18 14:50 Lymphocytes # (Manual) 1.3 K/mm3 (1.2-5.4) 04/21/18 14:50 Abs React Lymphs (Man) 0.0 K/mm3 04/21/18 14:50 Monocytes # (Manual) 1.6 K/mm3 (0.0-0.8) H 04/21/18 14:50 Eosinophils # (Manual) 0.0 K/mm3 (0.0-0.4) 04/21/18 14:50 Basophils # (Manual) 0.0 K/mm3 (0.0-0.1) 04/21/18 14:50 Metamyelocytes # 0.0 K/mm3 04/21/18 14:50 Myelocytes # 0.0 K/mm3 04/21/18 14:50 Promyelocytes # 0.0 K/mm3 04/21/18 14:50 Blast Cells # 0.0 K/mm3 04/21/18 14:50 WBC Morphology Not Reportable 04/21/18 14:50 Hypersegmented Neuts Not Reportable 04/21/18 14:50 Hyposegmented Neuts Not Reportable 04/21/18 14:50 Hypogranular Neuts Not Reportable 04/21/18 14:50 Smudge Cells Not Reportable 04/21/18 14:50 Toxic Granulation Not Reportable 04/21/18 14:50 Toxic Vacuolation Not Reportable 04/21/18 14:50 Dohle Bodies Not Reportable 04/21/18 14:50 Pelger-Huet Anomaly Not Reportable 04/21/18 14:50 Yoly Rods Not Reportable 04/21/18 14:50 Platelet Estimate Not Reportable 04/21/18 14:50 Clumped Platelets Not Reportable 04/21/18 14:50 Plt Clumps, EDTA Not Reportable 04/21/18 14:50 Large Platelets Not Reportable 04/21/18 14:50 Giant Platelets Not Reportable 04/21/18 14:50 Platelet Satelliting Not Reportable 04/21/18 14:50 Plt Morphology Comment Not Reportable 04/21/18 14:50 RBC Morphology Normal 04/21/18 14:50 Dimorphic RBCs Not Reportable 04/21/18 14:50 Polychromasia Not Reportable 04/21/18 14:50 Hypochromasia Not Reportable 04/21/18 14:50 Poikilocytosis Not Reportable 04/21/18 14:50 Anisocytosis Not Reportable 04/21/18 14:50 Microcytosis Not Reportable 04/21/18 14:50 Macrocytosis Not Reportable 04/21/18 14:50 Spherocytes Not Reportable 04/21/18 14:50 Pappenheimer Bodies Not Reportable 04/21/18 14:50 Sickle Cells Not Reportable 04/21/18 14:50 Target Cells Not Reportable 04/21/18 14:50 Tear Drop Cells Not Reportable 04/21/18 14:50 Ovalocytes Not Reportable 04/21/18 14:50 Helmet Cells Not Reportable 04/21/18 14:50 Guevara-[place] Bodies Not Reportable 04/21/18 14:50 [place] Rings Not Reportable 04/21/18 14:50 [place] Cells Not Reportable 04/21/18 14:50 Bite Cells Not Reportable 04/21/18 14:50 Crenated Cell Not Reportable 04/21/18 14:50 Elliptocytes Not Reportable 04/21/18 14:50 Acanthocytes (Spur) Not Reportable 04/21/18 14:50 Rouleaux Not Reportable 04/21/18 14:50 Hemoglobin C Crystals Not Reportable 04/21/18 14:50 Schistocytes Not Reportable 04/21/18 14:50 Malaria parasites Not Reportable 04/21/18 14:50 José Miguel Bodies Not Reportable 04/21/18 14:50 Hem Pathologist Commnt No 04/21/18 14:50 Sodium 138 mmol/L (137-145) 04/22/18 04:03 Potassium 3.5 mmol/L (3.6-5.0) L 04/22/18 04:03 Chloride 98.1 mmol/L (98-107) 04/22/18 04:03 Carbon Dioxide 26 mmol/L (22-30) 04/22/18 04:03 Anion Gap 17 mmol/L 04/22/18 04:03 BUN 54 mg/dL (9-20) H 04/22/18 04:03 Creatinine 3.8 mg/dL (0.8-1.5) H 04/22/18 04:03 Estimated GFR 22 ml/min 04/22/18 04:03 BUN/Creatinine Ratio 14 % 04/22/18 04:03 Glucose 75 mg/dL (75-100) 04/22/18 04:03 POC Glucose 89 (70-105) 04/23/18 07:56 Lactic Acid 1.40 mmol/L (0.7-2.0) 04/21/18 19:46 Calcium 8.5 mg/dL (8.4-10.2) 04/22/18 04:03 Total Bilirubin 1.10 mg/dL (0.1-1.2) 04/21/18 14:50 AST 50 units/L (5-40) H 04/21/18 14:50 ALT 12 units/L (7-56) 04/21/18 14:50 Alkaline Phosphatase 89 units/L (35-129) 04/21/18 14:50 Ammonia 106.0 umol/L (25-60) H 04/21/18 16:16 Total Protein 7.6 g/dL (6.3-8.2) 04/21/18 14:50 Albumin 2.9 g/dL (3.9-5) L 04/21/18 14:50 Albumin/Globulin Ratio 0.6 % 04/21/18 14:50 TSH 2.650 mlU/mL (0.270-4.200) 04/21/18 14:50 Urine Color Dayanara (Yellow) 04/21/18 19:30 Urine Turbidity Cloudy (Clear) 04/21/18 19:30 Urine pH 5.0 (5.0-7.0) 04/21/18 19:30 Ur Specific [place] 1.012 (1.003-1.030) 04/21/18 19:30 Urine Protein 100 mg/dl mg/dL (Negative) 04/21/18 19:30 Urine Glucose (UA) Neg mg/dL (Negative) 04/21/18 19:30 Urine Ketones Neg mg/dL (Negative) 04/21/18 19:30 Urine Blood Neg (Negative) 04/21/18 19:30 Urine Nitrite Neg (Negative) 04/21/18 19:30 Urine Bilirubin Neg (Negative) 04/21/18 19:30 Urine Urobilinogen < 2.0 mg/dL (<2.0) 04/21/18 19:30 Ur Leukocyte Esterase Neg (Negative) 04/21/18 19:30 Urine WBC (Auto) 3.0 /HPF (0.0-6.0) 04/21/18 19:30 Urine RBC (Auto) 2.0 /HPF (0.0-6.0) 04/21/18 19:30 U Epithel Cells (Auto) < 1.0 /HPF (0-13.0) 04/21/18 19:30 Urine Bacteria (Auto) 1+ /HPF (Negative) 04/21/18 19:30 Urine Yeast (Budding) 2+ /HPF 04/21/18 19:30 Urine Opiates Screen Presumptive negative 04/21/18 19:30 Urine Methadone Screen Presumptive negative 04/21/18 19:30 Ur Barbiturates Screen Presumptive negative 04/21/18 19:30 Ur Phencyclidine Scrn Presumptive negative 04/21/18 19:30 Ur Amphetamines Screen Presumptive negative 04/21/18 19:30 U Benzodiazepines Scrn Presumptive negative 04/21/18 19:30 Urine Cocaine Screen Presumptive negative 04/21/18 19:30 U Marijuana (THC) Screen Presumptive positive 04/21/18 19:30 Drugs of Abuse Note Disclamer 04/21/18 19:30 Plasma/Serum Alcohol < 0.01 % (0-0.07) 04/21/18 14:50 C. difficile Toxin A&B Negative (Negative) 04/22/18 06:22
[2018-04-23] MEDS: COREG PO SCH ×2 (12:15→23:11)
[2018-04-23] MEDS: SODIUM CHLORIDE FLUSH SYRINGE 10 ML IV SCH (12:16)
[2018-04-23] MEDS: APRESOLINE PO SCH ×2 (12:16→22:00)
[2018-04-23 12:26] LABS: Basophils % (Auto) 0.3 % (0.0-1.8); Eosinophils # (Auto) 0.2 K/mm3 (0.0-0.4); Eosinophils % (Auto) 1.6 % (0.0-4.3); Hematocrit 31.9 % (35.5-45.6); Hemoglobin 10.1 gm/dl (11.8-15.2); Lymphocytes # (Auto) 0.4 K/mm3 (1.2-5.4); Lymphocytes % (Auto) 4.3 % (13.4-35.0); Mean Corpuscular HGB Conc 32 % (32-34); Mean Corpuscular Volume 74 fl (84-94); Monocytes # (Auto) 1.3 K/mm3 (0.0-0.8); Monocytes % (Auto) 13.3 % (0.0-7.3); Platelet Count 160 K/mm3 (140-440); Red Blood Count 4.28 M/mm3 (3.65-5.03)
[2018-04-23 12:30] LABS: Mean Corpuscular Hemoglobin 24 pg (28-32); Red Cell Distribution Width 21.5 % (13.2-15.2)
[2018-04-23 12:44] LABS: Iron 16 ug/dL (49-181); Total Iron Binding Capacity 259 mcg/dL (250-450)
--- NOTE | 2018-04-23 19:09 | Hem/Onc Progress Note ---
Assessment and Plan 1. Groin, pelvic and periaortic lymphadenopathy with lymphoma versus mets differential. I discussed in detail with the patient. He thinks this is infection related. I explained to him that inguinal lymphadenopathy would not be secondary to urinary/bladder infection, which he thinks he has. I discussed with the patient regarding the need for further investigation. He is not keen for same and wants to wait. 2. Microcytic anemia. Will investigate. 3. h/o Leukocytosis, likely reactive. Predominant neutrophils. 4. h/o Renal impairment. 5. History of subarachnoid hemorrhage. 6. History of obstructive sleep apnea. 7. History of diabetes. 8. Essential hypertension. 9. History of congestive heart failure. I revisited the need for further investigation for lymphadenopathy. If the patient continues to be reluctant we will follow the patient as outpatient. investigations for microcytic anemia. tumor markers - Patient Problems (1) Lymphadenopathy Current Visit: Yes Status: Acute Subjective Date of service: 04/23/18 Principal diagnosis: LN in abdo/groin - r/o lymphoma Interval history: pt says doing better - he has not decided reg the LN bx evaluation eating ok Objective - Constitutional Vitals: Last Vital Signs Temp 98.0 F 04/23/18 05:01 Pulse 74 04/23/18 12:15 Resp 18 04/23/18 05:01 BP 174/96 04/23/18 12:15 Pulse Ox 96 04/23/18 10:00 Pain Intensity (0-10): denies any pain General appearance: no acute distress Performance status: 1-light work, ambulatory - EENT Eyes: PERRL ENT: clear oral mucosa Lymph node exam: negative cervical, negative supraclavicular - Neck Neck: supple - Respiratory Respiratory effort: Positive: normal Respiratory: bilateral: CTA - Cardiovascular Heart Sounds: Present: S1 & S2 - Gastrointestinal General gastrointestinal: Present: soft, non-tender Rectal Exam: deferred - Genitourinary Male genitourinary: Present: deferred - Musculoskeletal Musculoskeletal: strength equal bilaterally - Neurologic Neurologic: moves all extremities - Psychiatric Psychiatric: appropriate mood/affect - Labs Lab Results: Laboratory Results - last 24 hr 04/22/18 04/23/18 04/23/18 21:49 07:56 12:01 WBC 9.8 RBC 4.28 Hgb 10.1 L Hct 31.9 L MCV 74 L MCH 24 L MCHC 32 RDW 21.5 H Plt Count 160 Lymph % (Auto) 4.3 L Early % (Auto) 13.3 H Eos % (Auto) 1.6 Baso % (Auto) 0.3 Lymph # 0.4 L Early # 1.3 H Eos # 0.2 Baso # 0.0 Seg Neutrophils % 80.5 H Seg Neutrophils # 7.9 H POC Glucose 106 H 89 Iron TIBC Ferritin Vitamin B12 Folate 04/23/18 04/23/18 04/23/18 12:01 12:01 12:01 WBC RBC Hgb Hct MCV MCH MCHC RDW Plt Count Lymph % (Auto) [place] % (Auto) Eos % (Auto) Baso % (Auto) Lymph # Early # Eos # Baso # Seg Neutrophils % Seg Neutrophils # POC Glucose Iron 16 L TIBC 259 Ferritin 193.7 Vitamin B12 711.1 Folate 04/23/18 04/23/18 04/23/18 12:01 12:10 16:38 WBC RBC Hgb Hct MCV MCH MCHC RDW Plt Count Lymph % (Auto) Early % (Auto) Eos % (Auto) Baso % (Auto) Lymph # Early # Eos # Baso # Seg Neutrophils % Seg Neutrophils # POC Glucose 99 123 H Iron TIBC Ferritin Vitamin B12 Folate > 20.0
[2018-04-23] MEDS ORDERED: VASELINE LIP THERAPY TP PRN (20:28)
[2018-04-23 21:34] LABS: HCG,Quantitative < 2 mIU/mL (0-1)
[2018-04-23] MEDS ORDERED: NON-FORMULARY (Torsemide [Demadex] 40 MG) PO SCH (22:00)
[2018-04-23] MEDS: DEMADEX PO SCH (22:58)
[2018-04-24] MEDS: SODIUM CHLORIDE FLUSH SYRINGE 10 ML IV SCH ×3 (02:09→21:24)
[2018-04-24] MEDS: APRESOLINE PO SCH ×3 (03:09→21:23)
[2018-04-24] MEDS: FLAGYL 500 MG/100 ML 500 MG/100 ML BAG IV SCH ×2 (05:38→14:45)
[2018-04-24] MEDS: CEPHULAC PO SCH ×4 (05:38→23:54)
[2018-04-24] MEDS: NORVASC PO SCH (09:51)
[2018-04-24] MEDS: DEMADEX PO SCH ×2 (09:51→21:23)
[2018-04-24] MEDS ORDERED: NON-FORMULARY (Atorvastatin [Lipitor] 80 MG) PO SCH (10:00)
[2018-04-24] MEDS: COREG PO SCH ×2 (10:03→23:51)
[2018-04-24 10:44] LABS: Calcium 8.6 mg/dL (8.4-10.2)
[2018-04-24 10:46] LABS: Hematocrit 32.1 % (35.5-45.6); Hemoglobin 10.1 gm/dl (11.8-15.2); Mean Corpuscular HGB Conc 32 % (32-34); Mean Corpuscular Volume 74 fl (84-94); Platelet Count 166 K/mm3 (140-440); Red Blood Count 4.33 M/mm3 (3.65-5.03)
[2018-04-24 10:53] LABS: Mean Corpuscular Hemoglobin 23 pg (28-32); Red Cell Distribution Width 21.2 % (13.2-15.2)
[2018-04-24 11:54] LABS: Band Neutrophils # (Manual) 0.2 K/mm3; Basophils % (Manual) 0 % (0.0-1.8); Monocytes % (Manual) 18 % (0.0-7.3); Total Cells Counted 100
[2018-04-24 11:55] LABS: Anisocytosis 1+; Hypochromasia 1+; Poikilocytosis Few; Target Cells Few
[2018-04-24] MEDS ORDERED: K-DUR PO ONE (12:00)
--- NOTE | 2018-04-24 14:26 | XRay Report ---
FINAL REPORT EXAM: XR ANKLE 3+V RT HISTORY: fall/pain TECHNIQUE: Three portable views of the right ankle. PRIORS: None. FINDINGS: There is no evidence of acute fracture. There is no evidence of joint dislocation. There is dorsal spurring of the midfoot. IMPRESSION: There is no acute abnormality identified.
--- NOTE | 2018-04-24 18:40 | Progress Note ---
Assessment and Plan Assessment and plan: --s/p fall 2 weeks ago, ankle pain, check x-ray of ankle, pain management, Matthew wrap --Metabolic encephalopathy;Supportive care, neuro checks --History of subarachnoid hemorrhage in 2017; CT head negative for acute abnormality --Lymphadenopathy; possible lymphoma, hematology evaluation noted and appreciated, recommend LN biopsy Patient wants to wait, may schedule for biopsy as outpatient --Acute on chronic kidney disease; gentle hydration, closely monitor renal function Avoid nephrotoxins, nephrology evaluation --Hyperammonemia/Encephalopathy; A marked ammonia level, continue lactulose --Hypertension; moderate control, continue current antihypertensives and when necessary medications --Severe malnutrition/hypoalbuminemia, supportive care, nutrition supplements, nutrition consult --DVT prophylaxis; SCD, no pharmacologic anticoagulation in view of history of subarachnoid hemorrhage DC Planning to case management We'll discharge home tomorrow if stable History Interval history: Patient seen and examined medical records reviewed No new events reported, feels slightly better Complaints of right ankle pain because of fall prior to admission Vital signs reviewed Hospitalist Physical - Constitutional Vitals: Temp Pulse Resp BP Pulse Ox 98.0 F 80 20 124/67 96 04/24/18 12:56 04/24/18 12:56 04/24/18 12:56 04/24/18 12:56 04/24/18 12:56 General appearance: Present: no acute distress, well-nourished, obese (morbidly obese) - EENT Eyes: Present: PERRL, EOM intact - Neck Neck: Present: supple, normal ROM - Respiratory Respiratory effort: normal Respiratory: bilateral: diminished, negative: rales, rhonchi, wheezing - Cardiovascular Rhythm: regular Heart Sounds: Present: S1 & S2 - Extremities Extremities: no ischemia, No edema Peripheral Pulses: within normal limits - Abdominal General gastrointestinal: soft, non-tender, non-distended, normal bowel sounds, absent bowel sounds - Integumentary Integumentary: Present: clear, warm - Psychiatric Psychiatric: appropriate mood/affect, cooperative - Neurologic Neurologic: CNII-XII intact, moves all extremities Results - Labs CBC & Chem 7: 04/24/18 10:09 04/24/18 10:04 Labs: Laboratory Last Values WBC 5.1 K/mm3 (4.5-11.0) 04/24/18 10:09 RBC 4.33 M/mm3 (3.65-5.03) 04/24/18 10:09 Hgb 10.1 gm/dl (11.8-15.2) L 04/24/18 10:09 Hct 32.1 % (35.5-45.6) L 04/24/18 10:09 MCV 74 fl (84-94) L 04/24/18 10:09 MCH 23 pg (28-32) L 04/24/18 10:09 MCHC 32 % (32-34) 04/24/18 10:09 RDW 21.2 % (13.2-15.2) H 04/24/18 10:09 Plt Count 166 K/mm3 (140-440) 04/24/18 10:09 Lymph % (Auto) 4.3 % (13.4-35.0) L 04/23/18 12:01 [place] % (Auto) [employer] 04/24/18 10:09 Eos % (Auto) 1.6 % (0.0-4.3) 04/23/18 12:01 Baso % (Auto) 0.3 % (0.0-1.8) 04/23/18 12:01 Lymph # 0.4 K/mm3 (1.2-5.4) L 04/23/18 12:01 [place] # 1.3 K/mm3 (0.0-0.8) H 04/23/18 12:01 Eos # 0.2 K/mm3 (0.0-0.4) 04/23/18 12:01 Baso # 0.0 K/mm3 (0.0-0.1) 04/23/18 12:01 Add Manual Diff Complete 04/24/18 10:09 Total Counted 100 04/24/18 10:09 Seg Neutrophils % 80.5 % (40.0-70.0) H 04/23/18 12:01 Seg Neuts % (Manual) 66 % (40.0-70.0) 04/24/18 10:09 Band Neutrophils % 3.0 % 04/24/18 10:09 Lymphocytes % (Manual) 12.0 % (13.4-35.0) L 04/24/18 10:09 Reactive Lymphs % (Man) 0 % 04/24/18 10:09 Monocytes % (Manual) 18 % (0.0-7.3) H 04/24/18 10:09 Eosinophils % (Manual) 1.0 % (0.0-4.3) 04/24/18 10:09 Basophils % (Manual) 0 % (0.0-1.8) 04/24/18 10:09 Metamyelocytes % 0 % 04/24/18 10:09 Myelocytes % 0 % 04/24/18 10:09 Promyelocytes % 0 % 04/24/18 10:09 Blast Cells % 0 % 04/24/18 10:09 Nucleated RBC % Not Reportable 04/24/18 10:09 Seg Neutrophils # 7.9 K/mm3 (1.8-7.7) H 04/23/18 12:01 Seg Neutrophils # Man 3.3 K/mm3 (1.8-7.7) 04/24/18 10:09 Band Neutrophils # 0.2 K/mm3 04/24/18 10:09 Lymphocytes # (Manual) 0.6 K/mm3 (1.2-5.4) L 04/24/18 10:09 Abs React Lymphs (Man) 0.0 K/mm3 04/24/18 10:09 Monocytes # (Manual) 0.9 K/mm3 (0.0-0.8) H 04/24/18 10:09 Eosinophils # (Manual) 0.1 K/mm3 (0.0-0.4) 04/24/18 10:09 Basophils # (Manual) 0.0 K/mm3 (0.0-0.1) 04/24/18 10:09 Metamyelocytes # 0.0 K/mm3 04/24/18 10:09 Myelocytes # 0.0 K/mm3 04/24/18 10:09 Promyelocytes # 0.0 K/mm3 04/24/18 10:09 Blast Cells # 0.0 K/mm3 04/24/18 10:09 WBC Morphology Not Reportable 04/24/18 10:09 Hypersegmented Neuts Not Reportable 04/24/18 10:09 Hyposegmented Neuts Not Reportable 04/24/18 10:09 Hypogranular Neuts Not Reportable 04/24/18 10:09 Smudge Cells Not Reportable 04/24/18 10:09 Toxic Granulation Not Reportable 04/24/18 10:09 Toxic Vacuolation Not Reportable 04/24/18 10:09 Dohle Bodies Not Reportable 04/24/18 10:09 Pelger-Huet Anomaly Not Reportable 04/24/18 10:09 Yoly Rods Not Reportable 04/24/18 10:09 Platelet Estimate Not Reportable 04/24/18 10:09 Clumped Platelets Not Reportable 04/24/18 10:09 Plt Clumps, EDTA Not Reportable 04/24/18 10:09 Large Platelets Not Reportable 04/24/18 10:09 Giant Platelets Not Reportable 04/24/18 10:09 Platelet Satelliting Not Reportable 04/24/18 10:09 Plt Morphology Comment Not Reportable 04/24/18 10:09 RBC Morphology Not Reportable 04/24/18 10:09 Dimorphic RBCs Not Reportable 04/24/18 10:09 Polychromasia Not Reportable 04/24/18 10:09 Hypochromasia 1+ 04/24/18 10:09 Poikilocytosis Few 04/24/18 10:09 Anisocytosis 1+ 04/24/18 10:09 Microcytosis Not Reportable 04/24/18 10:09 Macrocytosis Not Reportable 04/24/18 10:09 Spherocytes Not Reportable 04/24/18 10:09 Pappenheimer Bodies Not Reportable 04/24/18 10:09 Sickle Cells Not Reportable 04/24/18 10:09 Target Cells Few 04/24/18 10:09 Tear Drop Cells Not Reportable 04/24/18 10:09 Ovalocytes Not Reportable 04/24/18 10:09 Helmet Cells Not Reportable 04/24/18 10:09 Guevara-[place] Bodies Not Reportable 04/24/18 10:09 [place] Rings Not Reportable 04/24/18 10:09 [place] Cells Not Reportable 04/24/18 10:09 Bite Cells Not Reportable 04/24/18 10:09 Crenated Cell Not Reportable 04/24/18 10:09 Elliptocytes Not Reportable 04/24/18 10:09 Acanthocytes (Spur) Not Reportable 04/24/18 10:09 Rouleaux Not Reportable 04/24/18 10:09 Hemoglobin C Crystals Not Reportable 04/24/18 10:09 Schistocytes Not Reportable 04/24/18 10:09 Malaria parasites Not Reportable 04/24/18 10:09 José Miguel Bodies Not Reportable 04/24/18 10:09 Hem Pathologist Commnt No 04/24/18 10:09 Sodium 137 mmol/L (137-145) 04/24/18 10:04 Potassium 3.3 mmol/L (3.6-5.0) L 04/24/18 10:04 Chloride 99.2 mmol/L (98-107) 04/24/18 10:04 Carbon Dioxide 23 mmol/L (22-30) 04/24/18 10:04 Anion Gap 18 mmol/L 04/24/18 10:04 BUN 42 mg/dL (9-20) H 04/24/18 10:04 Creatinine 2.7 mg/dL (0.8-1.5) H 04/24/18 10:04 Estimated GFR 33 ml/min 04/24/18 10:04 BUN/Creatinine Ratio 16 % 04/24/18 10:04 Glucose 135 mg/dL (75-100) H 04/24/18 10:04 POC Glucose 108 (70-105) H 04/24/18 16:47 Lactic Acid 1.40 mmol/L (0.7-2.0) 04/21/18 19:46 Calcium 8.6 mg/dL (8.4-10.2) 04/24/18 10:04 Iron 16 ug/dL (49-181) L 04/23/18 12:01 TIBC 259 mcg/dL (250-450) 04/23/18 12:01 Ferritin 193.7 ng/mL (13.0-400.0) 04/23/18 12:01 Total Bilirubin 1.10 mg/dL (0.1-1.2) 04/21/18 14:50 AST 50 units/L (5-40) H 04/21/18 14:50 ALT 12 units/L (7-56) 04/21/18 14:50 Alkaline Phosphatase 89 units/L (35-129) 04/21/18 14:50 Ammonia 106.0 umol/L (25-60) H 04/21/18 16:16 Total Protein 7.6 g/dL (6.3-8.2) 04/21/18 14:50 Albumin 2.9 g/dL (3.9-5) L 04/21/18 14:50 Albumin/Globulin Ratio 0.6 % 04/21/18 14:50 Prostate Specific Ag 0.42 ng/mL (0.00-4.00) 04/23/18 21:10 Vitamin B12 711.1 pg/mL (211-911) 04/23/18 12:01 Folate > 20.0 ng/mL (7.3-26.0) 04/23/18 12:01 TSH 2.650 mlU/mL (0.270-4.200) 04/21/18 14:50 HCG, Quant < 2 mIU/mL (0-1) H 04/23/18 21:10 Urine Color [place]an[place] (Yellow) 04/21/18 19:30 Urine Turbidity Cloudy (Clear) 04/21/18 19:30 Urine pH 5.0 (5.0-7.0) 04/21/18 19:30 Ur Specific [place] 1.012 (1.003-1.030) 04/21/18 19:30 Urine Protein 100 mg/dl mg/dL (Negative) 04/21/18 19:30 Urine Glucose (UA) Neg mg/dL (Negative) 04/21/18 19:30 Urine Ketones Neg mg/dL (Negative) 04/21/18 19:30 Urine Blood Neg (Negative) 04/21/18 19:30 Urine Nitrite Neg (Negative) 04/21/18 19:30 Urine Bilirubin Neg (Negative) 04/21/18 19:30 Urine Urobilinogen < 2.0 mg/dL (<2.0) 04/21/18 19:30 Ur Leukocyte Esterase Neg (Negative) 04/21/18 19:30 Urine WBC (Auto) 3.0 /HPF (0.0-6.0) 04/21/18 19:30 Urine RBC (Auto) 2.0 /HPF (0.0-6.0) 04/21/18 19:30 U Epithel Cells (Auto) < 1.0 /HPF (0-13.0) 04/21/18 19:30 Urine Bacteria (Auto) 1+ /HPF (Negative) 04/21/18 19:30 Urine Yeast (Budding) 2+ /HPF 04/21/18 19:30 Urine Opiates Screen Presumptive negative 04/21/18 19:30 Urine Methadone Screen Presumptive negative 04/21/18 19:30 Ur Barbiturates Screen Presumptive negative 04/21/18 19:30 Ur Phencyclidine Scrn Presumptive negative 04/21/18 19:30 Ur Amphetamines Screen Presumptive negative 04/21/18 19:30 U Benzodiazepines Scrn Presumptive negative 04/21/18 19:30 Urine Cocaine Screen Presumptive negative 04/21/18 19:30 U Marijuana (THC) Screen Presumptive positive 04/21/18 19:30 Drugs of Abuse Note Disclamer 04/21/18 19:30 Plasma/Serum Alcohol < 0.01 % (0-0.07) 04/21/18 14:50 C. difficile Toxin A&B Negative (Negative) 04/22/18 06:22
[2018-04-24] MEDS: FLAGYL PO SCH (21:23)
[2018-04-25] MEDS ORDERED: VITAMIN D2 PO SCH (00:10)
[2018-04-25] MEDS: FLAGYL PO SCH ×2 (05:35→14:22)
[2018-04-25] MEDS: APRESOLINE PO SCH ×2 (05:35→14:22)
[2018-04-25] MEDS: CEPHULAC PO SCH ×2 (05:36→14:16)
--- NOTE | 2018-04-25 08:14 | Hem/Onc Progress Note ---
Assessment and Plan 1. Groin, pelvic and periaortic lymphadenopathy with lymphoma versus mets are the differential. I discussed in detail with the patient. He thinks this is infection related. I explained to him that inguinal lymphadenopathy would not be secondary to urinary/bladder infection, which he thinks he has. I discussed with the patient regarding the need for further investigation. He is not keen for same and wants to wait. 2. Microcytic anemia. b12, folate normal - ferritin normal s iron lower side - will follow 3. h/o Leukocytosis, likely reactive. Predominant neutrophils. 4. h/o Renal impairment. 5. History of subarachnoid hemorrhage. 6. History of obstructive sleep apnea. 7. History of diabetes. 8. Essential hypertension. 9. History of congestive heart failure. I revisited the need for further investigation for lymphadenopathy. If the patient continues to be reluctant we will follow the patient as outpatient. tumor markers - psa and hcg normal - Patient Problems (1) Lymphadenopathy Current Visit: Yes Status: Acute Subjective Date of service: 04/25/18 Principal diagnosis: Lymphadenopathy Interval history: pt says doing better - he has not decided reg the LN bx evaluation eating ok had ankle Xrays Objective - Constitutional Vitals: Last Vital Signs Temp 99.6 F 04/25/18 05:30 Pulse 79 04/25/18 05:30 Resp 18 04/25/18 05:30 BP 176/104 04/25/18 05:30 Pulse Ox 91 04/25/18 05:30 Pain Intensity (0-10): 1/10 General appearance: no acute distress - EENT Eyes: PERRL ENT: clear oral mucosa Lymph node exam: negative cervical, negative supraclavicular - Neck Neck: supple - Respiratory Respiratory effort: Positive: normal Respiratory: bilateral: CTA - Cardiovascular Heart Sounds: Present: S1 & S2 Extremity abnormal: edema - Gastrointestinal General gastrointestinal: Present: soft Rectal Exam: deferred - Genitourinary Male genitourinary: Present: deferred - Integumentary Integumentary: warm - Musculoskeletal Musculoskeletal: strength equal bilaterally - Neurologic Neurologic: moves all extremities - Psychiatric Psychiatric: appropriate mood/affect - Labs Lab Results: Laboratory Results - last 24 hr 04/24/18 04/24/18 04/24/18 08:03 10:04 10:09 WBC 5.1 RBC 4.33 Hgb 10.1 L Hct 32.1 L MCV 74 L MCH 23 L MCHC 32 RDW 21.2 H Plt Count 166 Dickinson % (Auto) Sinter Machine Operator Add Manual Diff Complete Total Counted 100 Seg Neuts % (Manual) 66 Band Neutrophils % 3.0 Lymphocytes % (Manual) 12.0 L Reactive Lymphs % (Man) 0 Monocytes % (Manual) 18 H Eosinophils % (Manual) 1.0 Basophils % (Manual) 0 Metamyelocytes % 0 Myelocytes % 0 Promyelocytes % 0 Blast Cells % 0 Nucleated RBC % Not Reportable Seg Neutrophils # Man 3.3 Band Neutrophils # 0.2 Lymphocytes # (Manual) 0.6 L Abs React Lymphs (Man) 0.0 Monocytes # (Manual) 0.9 H Eosinophils # (Manual) 0.1 Basophils # (Manual) 0.0 Metamyelocytes # 0.0 Myelocytes # 0.0 Promyelocytes # 0.0 Blast Cells # 0.0 WBC Morphology Not Reportable Hypersegmented Neuts Not Reportable Hyposegmented Neuts Not Reportable Hypogranular Neuts Not Reportable Smudge Cells Not Reportable Toxic Granulation Not Reportable Toxic Vacuolation Not Reportable Dohle Bodies Not Reportable Pelger-Huet Anomaly Not Reportable Yoly Rods Not Reportable Platelet Estimate Not Reportable Clumped Platelets Not Reportable Plt Clumps, EDTA Not Reportable Large Platelets Not Reportable Giant Platelets Not Reportable Platelet Satelliting Not Reportable Plt Morphology Comment Not Reportable RBC Morphology Not Reportable Dimorphic RBCs Not Reportable Polychromasia Not Reportable Hypochromasia 1+ Poikilocytosis Few Anisocytosis 1+ Microcytosis Not Reportable Macrocytosis Not Reportable Spherocytes Not Reportable Pappenheimer Bodies Not Reportable Sickle Cells Not Reportable Target Cells Few Tear Drop Cells Not Reportable Ovalocytes Not Reportable Helmet Cells Not Reportable Guevara-Remlap Bodies Not Reportable Pride Rings Not Reportable Morgan Cells Not Reportable Bite Cells Not Reportable Crenated Cell Not Reportable Elliptocytes Not Reportable Acanthocytes (Spur) Not Reportable Rouleaux Not Reportable Hemoglobin C Crystals Not Reportable Schistocytes Not Reportable Malaria parasites Not Reportable José Miguel Bodies Not Reportable Hem Pathologist Commnt No Sodium 137 Potassium 3.3 L Chloride 99.2 Carbon Dioxide 23 Anion Gap 18 BUN 42 H Creatinine 2.7 H Estimated GFR 33 BUN/Creatinine Ratio 16 Glucose 135 H POC Glucose 100 Calcium 8.6 04/24/18 04/24/18 04/25/18 16:47 21:18 07:54 WBC RBC Hgb Hct MCV MCH MCHC RDW Plt Count Dickinson % (Auto) Add Manual Diff Total Counted Seg Neuts % (Manual) Band Neutrophils % Lymphocytes % (Manual) Reactive Lymphs % (Man) Monocytes % (Manual) Eosinophils % (Manual) Basophils % (Manual) Metamyelocytes % Myelocytes % Promyelocytes % Blast Cells % Nucleated RBC % Seg Neutrophils # Man Band Neutrophils # Lymphocytes # (Manual) Abs React Lymphs (Man) Monocytes # (Manual) Eosinophils # (Manual) Basophils # (Manual) Metamyelocytes # Myelocytes # Promyelocytes # Blast Cells # WBC Morphology Hypersegmented Neuts Hyposegmented Neuts Hypogranular Neuts Smudge Cells Toxic Granulation Toxic Vacuolation Dohle Bodies Pelger-Huet Anomaly Yoly Rods Platelet Estimate Clumped Platelets Plt Clumps, EDTA Large Platelets Giant Platelets Platelet Satelliting Plt Morphology Comment RBC Morphology Dimorphic RBCs Polychromasia Hypochromasia Poikilocytosis Anisocytosis Microcytosis Macrocytosis Spherocytes Pappenheimer Bodies Sickle Cells Target Cells Tear Drop Cells Ovalocytes Helmet Cells Guevara-Remlap Bodies Pride Rings Morgan Cells Bite Cells Crenated Cell Elliptocytes Acanthocytes (Spur) Rouleaux Hemoglobin C Crystals Schistocytes Malaria parasites José Miguel Bodies Hem Pathologist Commnt Sodium Potassium Chloride Carbon Dioxide Anion Gap BUN Creatinine Estimated GFR BUN/Creatinine Ratio Glucose POC Glucose 108 H 155 H 94 Calcium
--- NOTE | 2018-04-25 08:29 | Discharge Summary ---
Providers - Providers Date of Admission: 04/21/18 23:28 Date of discharge: 04/25/18 Attending physician: DELL PLASENCIA 04/21/18 23:28 Consult to Physician [CONS] Routine Comment: Consulting Provider: AMIRAH HUGO Physician Instructions: Reason For Exam: ab lymph nodes Primary care physician: LIGHTING SPECIALIST Hospitalization Reason for admission: altered level of consciousness/diarrhea Condition: Stable Pertinent studies: CT abdomen and pelvis; CT chest; no acute medical process, mild to moderate cardiomegaly, minimal pericardial effusion, minimal left pleural effusion CT head; no acute abnormality Chest x-ray; no acute abnormality Right ankle x-ray; no acute abnormality Hospital course: 34-year-old morbidly obese male patient with history of subarachnoid hemorrhage in 2017 congestive heart failure diabetes chronic kidney disease was admitted through emergency room with altered level of consciousness and diarrhea of 5 days Patient was admitted symptomatically managed, Had extensive workup as mentioned above Patient has lymphadenopathy, possible lymphoma, hematology oncologist evaluated the patient, recommended lymph node biopsy However patient opted to follow with them as outpatient and consider lymph node biopsy as outpatient Symptoms gradually improved, Patient also gives history of fall few weeks prior to admission with the right ankle swelling and pain X-ray right ankle negative for any acute abnormality, patient advised to elevate the limb Matthew wrap bandage was given, advised to ambulate as tolerated Today he is comfortable no new complaints, Vital signs reviewed stable Physical examination prior to discharge did not show any new changes Hemodynamically and clinically stable for discharge Advised to follow primary care physician Pvt. neurologist private outplacement consultant , hematology oncologist for Outpatient lymph node biopsy and further management upon discharge Patient was hemodynamically and clinically stable at discharge Cleared by all the specialists for discharge and follow up with them as scheduled Discharge diagnosis; --s/p fall 2 weeks ago, ankle pain, exam: No acute abnormality, Matthew wrap --Metabolic encephalopathy; supportive care --History of subarachnoid hemorrhage in 2017; CT head negative for acute abnormality --Lymphadenopathy; possible lymphoma, pathology evaluated recommend biopsy, patient wants the procedure outpatient --Acute on chronic kidney disease; gentle hydration, closely monitor renal function --Hyperammonemia/Encephalopathy; resolved --Hypertension; moderate control, --Severe malnutrition/hypoalbuminemia, nutrition supplements supportive care, Disposition: TO HOME OR SELFCARE Time spent for discharge: 32 min Core Measure Documentation - Palliative Care Palliative Care/ Comfort Measures: Not Applicable - Core Measures Any of the following diagnoses?: none Exam - Constitutional Vitals: Temp Pulse Resp BP Pulse Ox 99.6 F 79 18 176/104 91 04/25/18 05:30 04/25/18 05:30 04/25/18 05:30 04/25/18 05:30 04/25/18 05:30 General appearance: Present: no acute distress, obese (morbid) - EENT Eyes: Present: PERRL, EOM intact - Neck Neck: Present: supple, normal ROM - Respiratory Respiratory effort: normal Respiratory: bilateral: diminished, negative: rales, rhonchi, wheezing - Cardiovascular Rhythm: regular Heart Sounds: Present: S1 & S2 - Extremities Extremities: no ischemia, No edema Peripheral Pulses: within normal limits - Integumentary Integumentary: Present: clear, warm - Musculoskeletal Musculoskeletal: strength equal bilaterally - Psychiatric Psychiatric: cooperative - Neurologic Neurologic: moves all extremities Plan Activity: advance as tolerated, fall precautions Diet: low salt, renal Additional Instructions: Following a private nephrology within 1 week. Follow- up with hematology oncologist for lymph node biopsy as outpatient Follow up with: FRANCIA PETER MD [Primary Care Provider] - 7 Days AMIRAH HUGO MD [Staff Physician] - 7 Days Prescriptions: metroNIDAZOLE [Flagyl TAB] 500 mg PO Q8HR #15 tablet
[2018-04-25 09:40] LABS: Calcium 8.7 mg/dL (8.4-10.2)
[2018-04-25] MEDS: DEMADEX PO SCH (10:12)
[2018-04-25] MEDS: NORVASC PO SCH (10:12)
[2018-04-25] MEDS: SODIUM CHLORIDE FLUSH SYRINGE 10 ML IV SCH (10:13)
[2018-04-25] MEDS: COREG PO SCH (13:01)
[2018-04-25 13:02] VITALS: BP 167/91
== END 2018-04-25 15:27 | disposition home or self-care (01) | DRG 871 ==
LOC: ED 13:49 → 3A 23:28
PROVIDERS: ADMIT Internal Medicine; ATTEND Internal Medicine
DX: A41.9 Sepsis, unspecified organism (principal); G93.41 Metabolic encephalopathy; E43 Unspecified severe protein-calorie malnutrition; I13.0 Hypertensive heart and chronic kidney disease with heart failure and stage 1 through stage 4 chronic kidney disease, or unspecified chronic kidney disease; N17.9 Acute kidney failure, unspecified; E72.20 Disorder of urea cycle metabolism, unspecified; Z68.42 Body mass index [BMI] 45.0-49.9, adult; R19.7 Diarrhea, unspecified; R65.10 Systemic inflammatory response syndrome (SIRS) of non-infectious origin without acute organ dysfunction; I50.9 Heart failure, unspecified; E11.22 Type 2 diabetes mellitus with diabetic chronic kidney disease; N18.9 Chronic kidney disease, unspecified; R59.1 Generalized enlarged lymph nodes; D50.9 Iron deficiency anemia, unspecified; G47.33 Obstructive sleep apnea (adult) (pediatric); E66.01 Morbid (severe) obesity due to excess calories; Z82.49 Family history of ischemic heart disease and other diseases of the circulatory system; Z86.73 Personal history of transient ischemic attack (TIA), and cerebral infarction without residual deficits; Z79.899 Other long term (current) drug therapy; Z79.84 Long term (current) use of oral hypoglycemic drugs
CPT/HCPCS: 36415; 51701; 70450; 71045; 71250; 74176; 80048; 80053; 80307; 80320; 81001; 82140; 82378; 82607; 82728; 82747; 82962; 83550; 84153; 84443; 84702; 85007; 85025; 87040; 87045; 87116; 87324; 93005; 93010; 96365; 96366; 96367; 96375; A9270-GY; G0480; J0692; J3370; J7030; J7040

== ENCOUNTER 2022-03-15 08:18 | Emergency (ER) | payer MEDICARE, MEDICAID ==
[2022-03-15] MEDS ORDERED: levETIRAcetam 1000 MG/NS 0.75% 1,000 MG/100 ML BAG IV ONE (09:16)
[2022-03-15] MEDS ORDERED: SODIUM CHLORIDE 0.9% 1000 ML 1,000 ML IV ONE (09:16)
[2022-03-15 10:14] LABS: Basophils % (Auto) 0.8 % (0.0-1.8); Eosinophils # (Auto) 0.2 K/mm3 (0.0-0.4); Eosinophils % (Auto) 4.3 % (0.0-4.3); Hematocrit 35.2 % (35.5-45.6); Hemoglobin 11.8 gm/dl (11.8-15.2); Lymphocytes # (Auto) 0.9 K/mm3 (1.2-5.4); Lymphocytes % (Auto) 17.8 % (13.4-35.0); Mean Corpuscular HGB Conc 34 % (32-34); Mean Corpuscular Volume 93 fl (84-94); Monocytes # (Auto) 0.5 K/mm3 (0.0-0.8); Monocytes % (Auto) 10.1 % (0.0-7.3); Platelet Count 245 K/mm3 (140-440); Red Blood Count 3.78 M/mm3 (3.65-5.03); Red Cell Distribution Width 17.2 % (13.2-15.2)
--- NOTE | 2022-03-15 10:19 | Emergency Department Report ---
ED Seizure HPI - General Chief Complaint: Seizure Stated Complaint: SEIZURES Time Seen by Provider: 03/15/22 09:03 Source: patient, EMS Mode of arrival: Stretcher Limitations: Physical Limitation - History of Present Illness Initial Comments: 36 yo M with h/o brain aneurysm diagnosed in 2016 and CVA with left sided residual in 2020 brought this morning with episode of generalized seizure activity for the first time. Pt was in his usual health when this happened. Pt's sister was at the bedside and reports patient to have limited mobility following his stroke. No fever or chills reported. No other modifying or associated factors reported. - Related Data Home Medications Medication Instructions Recorded Confirmed Last Taken Amlodipine Besylate [Norvasc] 10 mg PO DAILY 04/22/18 04/22/18 04/21/18 Atorvastatin [Lipitor] 80 mg PO DAILY 04/22/18 04/22/18 04/21/18 Carvedilol [Coreg] 50 mg PO Q12H 04/22/18 04/22/18 04/21/18 Ergocalciferol (Vitamin D2) 50,000 unit PO Q7D 04/22/18 04/22/18 Unknown [Drisdol] Torsemide [Demadex] 40 mg PO BID 04/22/18 04/22/18 04/21/18 hydrALAZINE [Apresoline TAB] 100 mg PO Q8H 04/22/18 04/22/18 04/21/18 Previous Rx's Medication Instructions Recorded Last Taken Type metroNIDAZOLE [Flagyl TAB] 500 mg PO Q8HR #15 tablet 04/25/18 Unknown Rx Allergies Allergy/AdvReac Type Severity Reaction Status Date / Time No Known Allergies Allergy Verified 03/15/22 08:34 ED Review of Systems ROS: Stated complaint: SEIZURES Other details as noted in HPI Comment: All other systems reviewed and negative Neurological: other (seizure ) ED Past Medical Hx - Past Medical History Hx Hypertension: Yes Hx CVA: Yes Hx Congestive Heart Failure: Yes Hx Diabetes: Yes Hx Renal Disease: Yes Hx Asthma: No Hx COPD: Yes - Surgical History Additional Surgical History: unable to be obtained - Social History Smoking Status: Never Smoker - Medications Home Medications: Home Medications Medication Instructions Recorded Confirmed Last Taken Type Amlodipine Besylate [Norvasc] 10 mg PO DAILY 04/22/18 04/22/18 04/21/18 History Atorvastatin [Lipitor] 80 mg PO DAILY 04/22/18 04/22/18 04/21/18 History Carvedilol [Coreg] 50 mg PO Q12H 04/22/18 04/22/18 04/21/18 History Ergocalciferol (Vitamin D2) 50,000 unit PO Q7D 04/22/18 04/22/18 Unknown History [Drisdol] Torsemide [Demadex] 40 mg PO BID 04/22/18 04/22/18 04/21/18 History hydrALAZINE [Apresoline TAB] 100 mg PO Q8H 04/22/18 04/22/18 04/21/18 History metroNIDAZOLE [Flagyl TAB] 500 mg PO Q8HR #15 tablet 04/25/18 Unknown Rx ED Physical Exam - General Limitations: Physical Limitation General appearance: postictal, other (responsive to painful stimuli like placing iv line) - Head Head exam: Present: normal inspection - Eye Eye exam: Present: normal appearance Pupils: Present: normal accommodation - ENT ENT exam: Present: normal exam, normal orophraynx, mucous membranes dry - Neck Neck exam: Present: normal inspection, other (post intratractea intubation scar) - Respiratory Respiratory exam: Present: normal lung sounds bilaterally. Absent: respiratory distress, accessory muscle use - Cardiovascular Cardiovascular Exam: Present: regular rate, normal rhythm, normal heart sounds - GI/Abdominal GI/Abdominal exam: Present: soft, normal bowel sounds. Absent: distended, tenderness - Extremities Exam Extremities exam: Present: pedal edema - Neurological Exam Neurological exam: Present: other (postictal ) - Skin Skin exam: Present: warm, normal color ED Course Vital Signs 03/15/22 03/15/22 03/15/22 08:32 08:53 09:01 Temperature 97.4 F L Pulse Rate 67 85 Respiratory 18 18 Rate Blood Pressure Blood Pressure 146/87 [Left] O2 Sat by Pulse 98 87 100 Oximetry 03/15/22 03/15/22 03/15/22 09:15 09:31 09:45 Temperature Pulse Rate 79 82 77 Respiratory 13 14 12 Rate Blood Pressure 160/89 160/89 160/89 Blood Pressure [Left] O2 Sat by Pulse 97 97 97 Oximetry 03/15/22 03/15/22 03/15/22 10:01 10:15 10:31 Temperature Pulse Rate 80 73 77 Respiratory 13 11 L 14 Rate Blood Pressure 160/89 127/92 127/92 Blood Pressure [Left] O2 Sat by Pulse 98 99 98 Oximetry 03/15/22 03/15/22 03/15/22 10:45 11:01 11:15 Temperature Pulse Rate 76 80 71 Respiratory 11 L 11 L 12 Rate Blood Pressure 126/87 126/87 127/92 Blood Pressure [Left] O2 Sat by Pulse 99 100 98 Oximetry 03/15/22 03/15/22 03/15/22 11:31 11:45 12:01 Temperature Pulse Rate 71 73 76 Respiratory 13 13 15 Rate Blood Pressure 127/92 120/82 120/82 Blood Pressure [Left] O2 Sat by Pulse 98 98 98 Oximetry 03/15/22 03/15/22 03/15/22 12:15 12:31 12:45 Temperature Pulse Rate 72 69 71 Respiratory 11 L 13 12 Rate Blood Pressure 129/88 129/88 130/89 Blood Pressure [Left] O2 Sat by Pulse 98 100 99 Oximetry 03/15/22 03/15/22 03/15/22 13:01 13:15 13:31 Temperature Pulse Rate 70 65 64 Respiratory 13 12 13 Rate Blood Pressure 130/89 124/88 124/88 Blood Pressure [Left] O2 Sat by Pulse 99 98 98 Oximetry - Reevaluation(s) Reevaluation #1: 03/15/22 15:09 Pt is now awake and responding to verbal question appropriately-- ED Medical Decision Making - Lab Data Result diagrams: 03/15/22 09:54 03/15/22 09:54 - Radiology Data FINDINGS: BRAIN / INTRACRANIAL CONTENTS: No acute hemorrhage, mass effect, midline shift, hydrocephalus, or acute, large territorial infarct. Mild, diffuse cerebral atrophy. Mild to moderate degree of hippocampal atrophy suggested bilaterally. There are moderate, somewhat confluent areas of decreased attenuation in the white matter of the cerebral hemispheres, as well as the gangliocapsular regions. These are nonspecific findings and may be related to microangiopathy (hypertension, diabetes, atherosclerosis), given the patient's age. It might be difficult to evaluate for small areas of ischemia without diffusion imaging by MRI. CRANIOCERVICAL JUNCTION: No significant abnormality. ORBITS: No significant abnormality of visualized orbits. SINUSES / MASTOIDS: Visualized paranasal sinuses and mastoid air cells are essentially clear. ADDITIONAL FINDINGS: Atherosclerotic disease is seen in the anterior circulation. IMPRESSION: 1. No focal mass, hemorrhage, hydrocephalus, or acute, large territorial infarct. Follow-up with diffusion imaging by MRI, as clinically warranted. - Medical Decision Making Here with possible seizure -- but considering this patients age and with his recent clinical history with CVA and brain aneurysm repaired other differential such as stroke, myocardial infarction, hepatic encephalopathy, systemic infection with sepsis cannot be ruled out. In order to rule out those above we will go ahead and order CT scan of the brain, CBC, CMP, urinalysis, for any infectious process or electrolyte abnormality and thyroid panel for any hypo or hyper thyroidism. In the meantime we will go ahead and give immediate Keppra 1 g IV piggyback x1 and IvF ns 1L bolus while waiting for the above labs and imaging Lab reviewed noted with chronic anemia-- and acute on chronic renal failure with K+ 5.4 with BUN/Cr 48/5.8-- will continue ivf ns hydration and add insulin with E4O--afrh hold on given Kayexalate considering this patient with no mobility and with leftsided limb contracture s/p CVA-- After putting the above order I then find out that this patient is a dialysis patient due to be dialyzed tomorrow--at this point I cancelled the Kayexalate and the insulin and D5N ordered. I also consulted with long chain quiller tender Dr Jonas who reassured me that patient will be okay to have his dialysis tomorrow. Will continue to monitor this patient and follow up with the CT head result. -- resulted to be without any acute findings-- Critical care attestation.: If time is entered above; I have spent that time in minutes in the direct care of this critically ill patient, excluding procedure time. ED Disposition Clinical Impression: Seizure, Acute on chronic renal insufficiency Disposition: 01 HOME / SELF CARE / HOMELESS Is pt being admited?: No Does the pt Need Aspirin: No Condition: Stable Instructions: Food Basics for Chronic Kidney Disease, Seizure, Adult, Ea sy-to-Read, Chronic Kidney Disease, Adult, [id number] Additional Instructions: It is very important that you call and follow up for your dialysis tomorrow Please call your neurologist office for further evaluation and treatment of your new seizure Please do not hesitate to call or return to ED if your symptoms worsen Referrals: BASIL SAAVEDRA MD [Staff Physician] - 3-5 Days Time of Disposition: 15:10
[2022-03-15 10:37] LABS: Calcium 10.1 mg/dL (8.4-10.2)
[2022-03-15] MEDS ORDERED: INSULIN REGULAR, HUMAN 100 UNITS/1 ML IV ONE (11:58)
[2022-03-15] MEDS ORDERED: D5W/0.9% NACL 1,000 ML IV SCH (13:00)
--- NOTE | 2022-03-15 14:13 | Cat Scan Report ---
CT head/brain wo con INDICATION / CLINICAL INFORMATION: 36 years Male; new seizure. TECHNIQUE: Routine CT head without contrast. All CT scans at this location are performed using CT dos e reduction for ALARA by means of automated exposure control. COMPARISON: None. FINDINGS: BRAIN / INTRACRANIAL CONTENTS: No acute hemorrhage, mass effect, midline shift, hydrocephalus, or acu te, large territorial infarct. Mild, diffuse cerebral atrophy. Mild to moderate degree of hippocampal atrophy suggested bilaterally. There are moderate, somewhat confluent areas of decreased attenuation in the white matter of the cere bral hemispheres, as well as the gangliocapsular regions. These are nonspecific findings and may be r elated to microangiopathy (hypertension, diabetes, atherosclerosis), given the patient's age. It migh t be difficult to evaluate for small areas of ischemia without diffusion imaging by MRI. CRANIOCERVICAL JUNCTION: No significant abnormality. ORBITS: No significant abnormality of visualized orbits. SINUSES / MASTOIDS: Visualized paranasal sinuses and mastoid air cells are essentially clear. ADDITIONAL FINDINGS: Atherosclerotic disease is seen in the anterior circulation. IMPRESSION: 1. No focal mass, hemorrhage, hydrocephalus, or acute, large territorial infarct. Follow-up with diff usion imaging by MRI, as clinically warranted. Signer Name: Domingo Malave MD, III Signed: 03/15/2022 2:09 PM Workstation Name: [id number]
[2022-03-15 17:14] VITALS: BP 127/90
== END 2022-03-15 17:17 | disposition home or self-care (01) ==
LOC: ED 08:18
DX: R56.9 Unspecified convulsions (principal); I13.0 Hypertensive heart and chronic kidney disease with heart failure and stage 1 through stage 4 chronic kidney disease, or unspecified chronic kidney disease; E11.22 Type 2 diabetes mellitus with diabetic chronic kidney disease; N18.9 Chronic kidney disease, unspecified; I50.9 Heart failure, unspecified; J44.1 Chronic obstructive pulmonary disease with (acute) exacerbation; Z86.73 Personal history of transient ischemic attack (TIA), and cerebral infarction without residual deficits; Z79.899 Other long term (current) drug therapy
CPT/HCPCS: 36415; 70450; 80053; 85025; 96361; 96374; 99284; J1953; J7030; 80320; G0480